=== PATIENT | male | born 1965 | race American Indian/Alaskan Native ===

== ENCOUNTER 2016-08-22 18:27 | Emergency (ER) | payer MEDICARE ==
[2016-08-22 19:59] LABS: Hematocrit 33.9 % (35.5-45.6); Hemoglobin 10.8 gm/dl (11.8-15.2); Mean Corpuscular HGB Conc 32 % (32-34); Mean Corpuscular Hemoglobin 34 pg (28-32); Mean Corpuscular Volume 109 fl (84-94); Platelet Count 287 K/mm3 (140-440); Red Blood Count 3.13 M/mm3 (3.65-5.03); Red Cell Distribution Width 16.9 % (13.2-15.2); White Blood Count 5.8 K/mm3 (4.5-11.0)
[2016-08-22 20:10] LABS: Anion Gap 14 mmol/L; Blood Urea Nitrogen 21 mg/dL (9-20); Calcium 8.6 mg/dL (8.4-10.2); Carbon Dioxide 35 mmol/L (22-30); Chloride 93.6 mmol/L (98-107); Glucose 97 mg/dL (75-100); Potassium 4.9 mmol/L (3.6-5.0); Sodium 138 mmol/L (137-145)
[2016-08-22 20:34] LABS: Basophils % (Manual) 0 % (0.0-1.8); Blastocytes % (Manual) 0 %; Eosinophils % (Manual) 0 % (0.0-4.3)
[2016-08-22 20:35] LABS: Anisocytosis 1+; Hypochromasia 1+; Macrocytosis 2+
[2016-08-22 20:36] LABS: Diff Status Complete; Elliptocytes Few; Polychromasia Few
[2016-08-22] MEDS ORDERED: NACL 0.9% 1000 ML 1,000 ML IV ONE (20:51)
[2016-08-22] MEDS ORDERED: DUONEB 0.5 MG-3 MG/3 ML SOLN IH ONE ×2 (20:51→23:48)
[2016-08-22] MEDS ORDERED: MORPHINE IV ONE (20:51)
[2016-08-22] MEDS ORDERED: ZOFRAN IV ONE (20:51)
[2016-08-22] MEDS ORDERED: VALIUM IV ONE (20:51)
[2016-08-22 20:54] LABS: Cholesterol 233 mg/dL (50-199); HDL Cholesterol 75 mg/dL (40-59); LDL Cholesterol,Direct 135 mg/dL (50-130); Triglycerides 117 mg/dL (2-149)
--- NOTE | 2016-08-22 22:39 | Emergency Department Report ---
HPI - General Chief Complaint: Dyspnea/Respdistress Time Seen by Provider: 08/22/16 20:35 - HPI HPI: The patient is a 51-year-old male with a significant history of COPD, whom presents for evaluation of dyspnea. The patient reports 1 week of progressive dyspnea, severe for the past one day, exacerbated with physical activity, and associated with mild to moderate bilateral tightness in quality chest pain for the past one day. He states that his symptoms, particularly his chest pain, are consistent with previous COPD exacerbations. He states that he has had the same chest pain for years. The patient denies fever, syncopal, hemoptysis, unilateral leg swelling, recent immobilization, history of DVT or PE, recent cancer, history of familial coagulation disorder. ED Past Medical Hx - Medications Home Medications: Home Medications Medication Instructions Recorded Confirmed Last Taken Type ALBUTEROL Inhaler [ProAir HFA 2 puff IH QID PRN #1 inhalation 08/22/16 Unknown Rx Inhaler] HYDROcodone/APAP 7.5-325 [[place]arrison 1 each PO Q8HR PRN #10 tablet 08/22/16 Unknown Rx 7.5-325 mg TAB] predniSONE [Deltasone] 20 mg PO QDAY #5 tab 08/22/16 Unknown Rx ED Review of Systems ROS: Stated complaint: SOB Other details as noted in HPI Constitutional: denies: fever ENT: denies: throat or neck pain Respiratory: reports cough, shortness of breath Cardiovascular: reports chest pain Endocrine: denies unexplained weight loss or gain Gastrointestinal: denies: abdominal pain, nausea Genitourinary: denies: dysuria Musculoskeletal: denies: leg swelling Skin: denies: rash Neurological: denies: headache Hematological/Lymphatic: denies: easy bleeding or easy bruising Psych: denies sadness or hopelessness Physical Exam - Physical Exam Vital Signs: Vital Signs 08/22/16 08/22/16 18:45 19:08 Temperature 98.6 F Pulse Rate 134 H 114 H Respiratory 24 21 Rate Blood Pressure 167/117 Blood Pressure 158/98 [Left] O2 Sat by Pulse 98 100 Oximetry Physical Exam: General: well-nourished, well-developed, no acute distress Head: Normocephalic, atraumatic Eyes: normal sclera ENT: Mucous membranes are pale and dry Neck: trachea midline, neck supple, No neck stiffness, no cervical adenopathy Respiratory: Mildly diminished breath sounds and wheezing present to apical lung willis bilaterally, no costal retractions, no respiratory distress Cardio: S1 and S2 present, no murmurs, rubs, gallops, capillary refill is delayed Abdomen: Normoactive bowel sounds, soft abdomen, no rigidity, no guarding or rebound tenderness Musc: No pitting edema Skin: No rash Neuro: no facial drooping, normal speech Psych: Normal affect ED Course Vital Signs 08/22/16 08/22/16 18:45 19:08 Temperature 98.6 F Pulse Rate 134 H 114 H Respiratory 24 21 Rate Blood Pressure 167/117 Blood Pressure 158/98 [Left] O2 Sat by Pulse 98 100 Oximetry ED Medical Decision Making - Lab Data Result diagrams: 08/22/16 19:28 08/22/16 19:28 - Medical Decision Making The patient was seen and examined by myself. The patient is placed on a security monitor and continuous pulse ox. On initial evaluation, the patient was found to be in no distress. Evaluation orders were placed. EKG negative for findings suggestive of ACS. The patient is given solumedrol for txt of COPD. The patient is given 1 L normal saline fluid bolus for treatment of dehydration and IV morphine for pain. Chest x-ray negative for focal consolidation, pleural effusions, pulmonary congestion, pneumothorax, or other acute cardio pulmonary disease process. Lab results are grossly not concerning, including downtrending troponin level from .06 to .034. The patient was reevaluated and reported that his symptoms were markedly improved. The patient is stable for discharge with outpatient follow-up. The patient is given follow-up and return instructions. The patient expressed understanding and agreed with the plan. The patient is given a prescription for prednisone. The patient is discharged in stable condition. Critical care attestation.: If time is entered above; I have spent that time in minutes in the direct care of this critically ill patient, excluding procedure time. ED Disposition Clinical Impression: Acute chest pain, Acute exacerbation of chronic obstructive pulmonary disease ( COPD), Dehydration Disposition: DISCHARGED TO HOME OR SELFCARE Is pt being admited?: No Does the pt Need Aspirin: No Condition: Stable Instructions: Chest Pain (ED), Chronic Obstructive Pulmonary Disease (ED) Prescriptions: predniSONE [Deltasone] 20 mg PO QDAY #5 tab HYDROcodone/APAP 7.5-325 [[place]arrison 7.5-325 mg TAB] 1 each PO Q8HR PRN #10 tablet PRN Reason: Pain ALBUTEROL Inhaler [ProAir HFA Inhaler] 2 puff IH QID PRN #1 inhalation PRN Reason: Shortness Of Breath Referrals: PRIMARY CARE, [Primary Care Provider] - 3-5 Days Time of Disposition: 23:08
[2016-08-23] MEDS ORDERED: MORPHINE IV ONE (02:15)
[2016-08-23 03:19] VITALS: BP 138/98
--- NOTE | 2016-08-23 08:22 | XRay Report ---
CHEST XRAY, 2 VIEWS: History: Shortness of breath. Findings: There is mild diffuse interstitial coarsening. The lungs are otherwise clear but hyperexpanded. The pleural spaces are clear. The cardiac silhouette and pulmonary vasculature are within normal limits for technique. IMPRESSION: Changes consistent with moderate to severe COPD. No evidence for an acute process.
== END 2016-08-23 03:18 | disposition home or self-care (01) ==
LOC: ED 18:27
DX: J44.1 Chronic obstructive pulmonary disease with (acute) exacerbation (principal); R07.89 Other chest pain
CPT/HCPCS: 36415; 71020; 80048; 80061; 84484; 85007; 85025; 93005; 93010; 94640; 96361; 96374; 96375; 96376; 99284; J2270; J2405; J2930; J3360; J7030

== ENCOUNTER 2016-11-16 17:20 | Emergency (ER) | payer MEDICARE ==
[2016-11-16] MEDS ORDERED: DUONEB 0.5 MG-3 MG/3 ML SOLN IH ONE (17:45)
--- NOTE | 2016-11-16 17:49 | Emergency Department Report ---
Entered by SKY CRAIN, acting as scribe for ISADORA MANZANARES NP. Chief Complaint: Dyspnea/Respdistress Stated Complaint: CHEST PAIN/SOB Time Seen by Provider: 11/16/16 17:40 - HPI History of Present Illness: 51 y/o male presents with SOB present for 1 week. Additional Sx include chronic chest pain present previous to episodes of SOB. Denies fever. - ROS Review of Systems: +chronic chest pain +SOB -fever - Exam Vital Signs: Vital Signs 11/16/16 17:36 Temperature 98.0 F Pulse Rate 95 H Respiratory 26 H Rate Blood Pressure 143/103 O2 Sat by Pulse 100 Oximetry Physical Exam: thin male, purse lipped breathing, with NC lung sounds diminished live and + wheezing MSE screening note: Focused history and physical exam performed. Due to findings the following was ordered: ekg, xr, labs ED Disposition for MSE Condition: Stable This documentation as recorded by the scribePARAS RYAN,accurately reflects the service I personally performed and the decisions made by LEIGHTON woods TRACY M , MARILU.
[2016-11-16 18:35] LABS: Hemoglobin 10.8 gm/dl (11.8-15.2); Red Blood Count 3.21 M/mm3 (3.65-5.03); White Blood Count 7.6 K/mm3 (4.5-11.0)
[2016-11-16 18:36] LABS: Basophils % (Auto) 0.3 % (0.0-1.8); Hematocrit 34.1 % (35.5-45.6); Mean Corpuscular HGB Conc 32 % (32-34); Mean Corpuscular Hemoglobin 34 pg (28-32); Mean Corpuscular Volume 106 fl (84-94); Platelet Count 195 K/mm3 (140-440); Red Cell Distribution Width 14.8 % (13.2-15.2)
[2016-11-16 18:48] LABS: Alanine Aminotransferase 16 units/L (7-56); Albumin 3.9 g/dL (3.9-5); Albumin/Globulin Ratio 1.6 %; Alkaline Phosphatase 52 units/L (35-129); Anion Gap 15 mmol/L; BUN/Creatinine Ratio 28.75; Bilirubin,Total 0.3 mg/dL (0.1-1.2); Blood Urea Nitrogen 23 mg/dL (9-20); Carbon Dioxide 33 mmol/L (22-30); Chloride 97.5 mmol/L (98-107); Glucose 131 mg/dL (75-100); Potassium 4.5 mmol/L (3.6-5.0); Sodium 141 mmol/L (137-145); Total Protein 6.3 g/dL (6.3-8.2)
--- NOTE | 2016-11-16 19:10 | Emergency Department Report ---
ED Shortness of Breath HPI - General Chief Complaint: Dyspnea/Respdistress Stated Complaint: CHEST PAIN/SOB Time Seen by Provider: 11/16/16 17:40 Source: patient Mode of arrival: Wheelchair Limitations: No Limitations - History of Present Illness Initial Comments: 51-year-old male with history of COPD on 5 L home O2 24 hours a day, HIV AIDS with last CD4 count of 20 presenting today because of worsening shortness of breath. Patient states that's been going on for the last 10 days. Started taking prednisone yesterday 40 mg and took a 30 mg dose today without significant improvement. Denies any cough or nasal congestion with this. No fevers or chills. He has chronic chest pain on the left side for many months and states he was told it was because of his COPD. - Related Data Previous Rx's Medication Instructions Recorded Last Taken Type ALBUTEROL Inhaler [ProAir HFA 2 puff IH QID PRN #1 inhalation 08/22/16 Unknown Rx Inhaler] HYDROcodone/APAP 7.5-325 [[place] 1 each PO Q8HR PRN #10 tablet 08/22/16 Unknown Rx 7.5-325 mg TAB] predniSONE [Deltasone] 20 mg PO QDAY #5 tab 08/22/16 Unknown Rx predniSONE [Deltasone] 50 mg PO QDAY #4 tab 11/16/16 Unknown Rx Allergies Allergy/AdvReac Type Severity Reaction Status Date / Time No Known Allergies Allergy Verified 08/22/16 23:55 ED Review of Systems ROS: Stated complaint: CHEST PAIN/SOB Other details as noted in HPI Comment: All other systems reviewed and negative Constitutional: denies: chills, fever Respiratory: shortness of breath. denies: cough, wheezing Cardiovascular: denies: chest pain Gastrointestinal: denies: abdominal pain, nausea, vomiting Genitourinary: denies: dysuria Skin: denies: rash Psychiatric: denies: anxiety ED Past Medical Hx - Past Medical History Previous Medical History?: Yes Hx Congestive Heart Failure: Yes Hx HIV: Yes - Surgical History Past Surgical History?: Yes Additional Surgical History: Brain - Social History Smoking Status: Former Smoker Substance Use Type: None - Medications Home Medications: Home Medications Medication Instructions Recorded Confirmed Last Taken Type ALBUTEROL Inhaler [ProAir HFA 2 puff IH QID PRN #1 inhalation 08/22/16 Unknown Rx Inhaler] HYDROcodone/APAP 7.5-325 [[place] 1 each PO Q8HR PRN #10 tablet 08/22/16 Unknown Rx 7.5-325 mg TAB] predniSONE [Deltasone] 20 mg PO QDAY #5 tab 08/22/16 Unknown Rx predniSONE [Deltasone] 50 mg PO QDAY #4 tab 11/16/16 Unknown Rx ED Physical Exam - General Limitations: No Limitations General appearance: alert, in no apparent distress - Head Head exam: Present: atraumatic - Eye Eye exam: Present: normal appearance - Respiratory Respiratory exam: Present: normal lung sounds bilaterally. Absent: respiratory distress - Cardiovascular Cardiovascular Exam: Present: regular rate, normal rhythm, other (slightly tachypnic) - GI/Abdominal GI/Abdominal exam: Present: soft. Absent: distended, tenderness - Neurological Exam Neurological exam: Present: alert, oriented X3 - Psychiatric Psychiatric exam: Present: normal affect - Skin Skin exam: Absent: rash ED Course Vital Signs 11/16/16 11/16/16 11/16/16 17:36 19:29 19:36 Temperature 98.0 F Pulse Rate 95 H 90 Pulse Rate [ 89 Anterior Bilateral Throughout] Respiratory 26 H 18 Rate Respiratory 18 Rate [Anterior Bilateral Throughout] Blood Pressure 143/103 Blood Pressure 129/85 [Left] O2 Sat by Pulse 100 100 Oximetry 11/16/16 11/16/16 11/16/16 19:46 20:05 20:12 Temperature Pulse Rate 88 Pulse Rate [ 93 H Anterior Bilateral Throughout] Respiratory 16 Rate Respiratory 18 Rate [Anterior Bilateral Throughout] Blood Pressure Blood Pressure 129/85 [Left] O2 Sat by Pulse 100 100 Oximetry 11/16/16 22:02 Temperature Pulse Rate 90 Pulse Rate [ Anterior Bilateral Throughout] Respiratory 21 Rate Respiratory Rate [Anterior Bilateral Throughout] Blood Pressure Blood Pressure 135/87 [Left] O2 Sat by Pulse 98 Oximetry ED Medical Decision Making - Lab Data Result diagrams: 11/16/16 18:14 11/16/16 18:14 - Medical Decision Making Labs, cxr, nebs, steroids ekg shows nsr without st-t changes Labs unremarkable ABG was consistent with chronic respiratory alkalosis Chest x-ray appears to be unchanged compared to prior. No clear acute infiltrate. Patient reassessed after her nebulizers and steroids, has significant improvement in symptoms it is no longer tachypneic. Stable for discharge. Critical care attestation.: If time is entered above; I have spent that time in minutes in the direct care of this critically ill patient, excluding procedure time. ED Disposition Clinical Impression: Acute exacerbation of chronic obstructive pulmonary disease (COPD) Disposition: DISCHARGED TO HOME OR SELFCARE Is pt being admited?: No Does the pt Need Aspirin: No Condition: Stable Instructions: Chronic Obstructive Pulmonary Disease (ED) Additional Instructions: Please follow up with the primary care doctor and the jet dyeing machine tender in the next 2-3 days. Return to the emergency room if your symptoms significantly worsen or develop new symptoms. Prescriptions: predniSONE [Deltasone] 50 mg PO QDAY #4 tab Referrals: PRIMARY CARE, [Primary Care Provider] - 3-5 Days
[2016-11-16 19:48] LABS: ISTAT Base Excess 9; ISTAT HCO3 34.2; ISTAT PCO2 60.2 (35-45); ISTAT PH 7.362 (7.35-7.45); ISTAT PO2 125 (80-105); ISTAT SO2 99; ISTAT TCO2 36
[2016-11-16] MEDS ORDERED: NORCO 5/325 PO ONE (21:20)
[2016-11-16 22:03] VITALS: BP 135/87
--- NOTE | 2016-11-17 08:10 | XRay Report ---
Chest 2 views. History: Shortness of breath. Findings: The lungs are severely hyperinflated and are free of acute infiltrates or congestive changes. Heart and pulmonary vessels are normal. There is no pleural fluid. Compared to a previous study on August 22, 2016, there has been no significant interval change. Impression: COPD with no acute findings.
== END 2016-11-16 22:32 | disposition home or self-care (01) ==
LOC: ED 17:20
DX: J44.1 Chronic obstructive pulmonary disease with (acute) exacerbation (principal); I50.9 Heart failure, unspecified; Z87.891 Personal history of nicotine dependence
CPT/HCPCS: 36415; 71020; 80053; 82803; 83880; 84484; 85025; 93010; 94640; 96374; 99284; J2930

== ENCOUNTER 2017-02-03 18:55 | Inpatient (IN) | payer MEDICARE ==
[2017-02-03 20:12] LABS: Mean Corpuscular HGB Conc 30 % (32-34); Mean Corpuscular Hemoglobin 31 pg (28-32); Mean Corpuscular Volume 101 fl (84-94); Platelet Count 289 K/mm3 (140-440); Red Blood Count 3.48 M/mm3 (3.65-5.03); Red Cell Distribution Width 15.5 % (13.2-15.2); White Blood Count 7.6 K/mm3 (4.5-11.0)
[2017-02-03 20:14] LABS: Alanine Aminotransferase 10 units/L (7-56); Albumin 3.1 g/dL (3.9-5); Albumin/Globulin Ratio 0.9 %; Alkaline Phosphatase 95 units/L (35-129); Blood Urea Nitrogen 18 mg/dL (9-20); Calcium 9.1 mg/dL (8.4-10.2); Chloride 92.7 mmol/L (98-107); Glucose 101 mg/dL (75-100); Potassium 4.7 mmol/L (3.6-5.0); Sodium 142 mmol/L (137-145); Total Protein 6.7 g/dL (6.3-8.2)
[2017-02-03 20:18] LABS: Anion Gap 12 mmol/L; Carbon Dioxide 42 mmol/L (22-30); Hematocrit 35.3 % (35.5-45.6); Hemoglobin 10.7 gm/dl (11.8-15.2)
[2017-02-03 20:50] LABS: Basophils % (Manual) 0 % (0.0-1.8); Blastocytes % (Manual) 0 %; Eosinophils % (Manual) 0 % (0.0-4.3)
[2017-02-03 20:51] LABS: Anisocytosis 1+; Hypochromasia 1+; Macrocytosis 1+
[2017-02-03 20:52] LABS: Diff Status Complete; Ovalocytes Few
[2017-02-03] MEDS ORDERED: NACL 0.9% 1000 ML IV ONE (21:05)
[2017-02-03] MEDS ORDERED: MOTRIN PO ONE (21:05)
[2017-02-03] MEDS ORDERED: TYLENOL PO ONE (21:05)
[2017-02-03] MEDS ORDERED: ROCEPHIN/NS 1 GM/50 ML 1 GM/50 ML BAG IV ONE (21:05)
[2017-02-03] MEDS ORDERED: ZITHROMAX PO ONE (21:05)
[2017-02-03] MEDS ORDERED: DECADRON IM ONE (21:05)
[2017-02-03] MEDS ORDERED: ATROVENT IH ONE (21:06)
[2017-02-03] MEDS ORDERED: PROVENTIL IH ONE (21:06)
[2017-02-03] MEDS ORDERED: BACTRIM IV STA (21:10)
--- NOTE | 2017-02-03 21:12 | Emergency Department Report ---
ED General Adult HPI - General Chief complaint: Weakness Stated complaint: WEAKNESS 7 DAYS Time Seen by Provider: 02/03/17 20:54 Source: patient, RN notes reviewed, old records reviewed Mode of arrival: Wheelchair Limitations: Physical Limitation - History of Present Illness Initial comments: This is a 51-year-old male. He is previously unknown to me. He has a past medical history of COPD, HIV/AIDS, currently on home oxygen therapy. Presents to the ER complaining of cough, green mucus, weakness, Chest congestion. This is been going on for the past few days. He reports decrease in exercise tolerance and generalized weakness. No fevers. Also complains of subxiphoid chest pressure and pain for 3 years. The pain does not radiate to the back, arms or neck. His symptoms have been constant for the past few days. They're getting worse. There is no leg pain. There is no leg swelling. No recent trips greater than 4 hours. No recent hospital admissions. Patient reports being seen in another emergency room at another hospital a few days ago, and told that he had a "cold." -: Gradual Consistency: constant Improves with: rest Worsens with: movement Associated Symptoms: chest pain, cough, malaise, shortness of breath, weakness - Related Data Home Medications Medication Instructions Recorded Confirmed Last Taken Carvedilol [Coreg] 12.5 mg PO Q12H 02/03/17 02/03/17 Unknown Darunavir [Prezista] 800 mg PO QDAY 02/03/17 02/03/17 Unknown Ergocalciferol [Vitamin D2] 1 cap PO QWEEK 02/03/17 02/03/17 Unknown Lisinopril [Zestril TAB] 10 mg PO QDAY 02/03/17 02/03/17 Unknown Ondansetron [Zofran TAB] 4 mg PO Q8H PRN 02/03/17 02/03/17 Unknown Oxycodone HCl [Oxycontin] 10 mg PO Q12H 02/03/17 02/03/17 Unknown clonazePAM [clonazePAM] 0.5 mg PO BID PRN 02/03/17 02/03/17 Unknown predniSONE [Deltasone] 10 mg PO QDAY 02/03/17 02/03/17 Unknown Allergies Allergy/AdvReac Type Severity Reaction Status Date / Time No Known Allergies Allergy Verified 01/22/17 23:55 ED Review of Systems ROS: Stated complaint: WEAKNESS 7 DAYS Other details as noted in HPI Constitutional: malaise, weakness Eyes: denies: eye discharge ENT: denies: epistaxis Respiratory: cough, shortness of breath, SOB with exertion, SOB at rest Cardiovascular: chest pain, dyspnea on exertion Gastrointestinal: denies: vomiting Genitourinary: as per HPI Musculoskeletal: as per HPI Skin: as per HPI Neurological: as per HPI, weakness Psychiatric: anxiety ED Past Medical Hx - Past Medical History Previous Medical History?: Yes Hx Congestive Heart Failure: Yes Hx COPD: Yes Hx HIV: Yes - Surgical History Past Surgical History?: Yes Additional Surgical History: Brain - Social History Smoking Status: Never Smoker Substance Use Type: None - Medications Home Medications: Home Medications Medication Instructions Recorded Confirmed Last Taken Type Carvedilol [Coreg] 12.5 mg PO Q12H 02/03/17 02/03/17 Unknown History Darunavir [Prezista] 800 mg PO QDAY 02/03/17 02/03/17 Unknown History Ergocalciferol [Vitamin D2] 1 cap PO QWEEK 02/03/17 02/03/17 Unknown History Lisinopril [Zestril TAB] 10 mg PO QDAY 02/03/17 02/03/17 Unknown History Ondansetron [Zofran TAB] 4 mg PO Q8H PRN 02/03/17 02/03/17 Unknown History Oxycodone HCl [Oxycontin] 10 mg PO Q12H 02/03/17 02/03/17 Unknown History clonazePAM [clonazePAM] 0.5 mg PO BID PRN 02/03/17 02/03/17 Unknown History predniSONE [Deltasone] 10 mg PO QDAY 02/03/17 02/03/17 Unknown History ED Physical Exam - General Limitations: Physical Limitation General appearance: alert, anxious, cachectic - Head Head exam: Present: atraumatic, normocephalic - Eye Eye exam: Present: normal appearance, EOMI - ENT ENT exam: Present: normal exam, normal orophraynx, mucous membranes moist - Neck Neck exam: Present: normal inspection, full ROM. Absent: tenderness, meningismus - Respiratory Respiratory exam: Present: respiratory distress, rhonchi - Cardiovascular Cardiovascular Exam: Present: normal rhythm, tachycardia, normal heart sounds. Absent: systolic murmur, diastolic murmur, rubs, gallop - GI/Abdominal GI/Abdominal exam: Present: soft, normal bowel sounds. Absent: distended, tenderness, guarding, rebound, rigid, pulsatile mass - Rectal Rectal exam: Present: deferred - Extremities Exam Extremities exam: Present: normal inspection, full ROM, normal capillary refill. Absent: tenderness, pedal edema, joint swelling, calf tenderness - Back Exam Back exam: Present: normal inspection, full ROM. Absent: tenderness, CVA tenderness (R), CVA tenderness (L), muscle spasm, paraspinal tenderness, vertebral tenderness - Neurological Exam Neurological exam: Present: alert, oriented X3, other (Extraocular movements intact. Tongue midline. No facial droop. Facial sensation intact to light touch in the V1, V2, V3 distribution bilaterally. 5 and 5 strength in 4 extremities.. Sensation is intact to light touch in 4 extremities.). Absent: motor sensory deficit - Psychiatric Psychiatric exam: Present: normal affect, normal mood - Skin Skin exam: Present: warm, dry, intact, normal color. Absent: rash ED Course Vital Signs 02/03/17 02/03/17 02/03/17 19:32 20:37 20:54 Temperature 99.0 F Pulse Rate 105 H Pulse Rate [ Bilateral Upper Lobe] Respiratory 16 20 Rate Respiratory Rate [Bilateral Upper Lobe] Blood Pressure 112/82 Blood Pressure [Right] O2 Sat by Pulse 97 99 98 Oximetry 02/03/17 02/03/17 02/03/17 21:00 21:25 21:30 Temperature Pulse Rate Pulse Rate [ Bilateral Upper Lobe] Respiratory 18 Rate Respiratory Rate [Bilateral Upper Lobe] Blood Pressure 140/89 148/93 Blood Pressure [Right] O2 Sat by Pulse 100 Oximetry 02/03/17 02/03/17 02/03/17 21:37 21:39 22:00 Temperature Pulse Rate 95 H Pulse Rate [ Bilateral Upper Lobe] Respiratory 26 H Rate Respiratory Rate [Bilateral Upper Lobe] Blood Pressure 134/90 133/95 Blood Pressure [Right] O2 Sat by Pulse 100 100 99 Oximetry 02/03/17 02/03/17 02/03/17 22:30 23:00 23:30 Temperature Pulse Rate Pulse Rate [ 96 H Bilateral Upper Lobe] Respiratory Rate Respiratory 24 Rate [Bilateral Upper Lobe] Blood Pressure 134/90 107/73 114/84 Blood Pressure [Right] O2 Sat by Pulse 99 100 99 Oximetry 02/04/17 00:00 Temperature Pulse Rate 85 Pulse Rate [ Bilateral Upper Lobe] Respiratory 153 H Rate Respiratory Rate [Bilateral Upper Lobe] Blood Pressure Blood Pressure 114/84 [Right] O2 Sat by Pulse 98 Oximetry - Reevaluation(s) Reevaluation #1: 02/03/17 21:42 Arterial blood gas demonstrates a PaCO2 of 86. The patient is not encephalopathic or obtunded. He'll be started on BiPAP therapy. ED Medical Decision Making - Lab Data Result diagrams: 02/03/17 19:41 02/03/17 19:41 Vital Signs 02/03/17 02/03/17 19:32 20:54 Temperature 99.0 F Pulse Rate 105 H Respiratory 16 20 Rate Blood Pressure 112/82 O2 Sat by Pulse 97 98 Oximetry Lab Results 02/03/17 02/03/17 Range/Units 19:41 19:41 WBC 7.6 (4.5-11.0) K/mm3 RBC 3.48 L (3.65-5.03) M/mm3 Hgb 10.7 L (11.8-15.2) gm/dl Hct 35.3 L (35.5-45.6) % MCV 101 H (84-94) fl MCH 31 (28-32) pg MCHC 30 L (32-34) % RDW 15.5 H (13.2-15.2) % Plt Count 289 (140-440) K/mm3 Lymph % (Auto) Buyer Tobacco Head [place] % (Auto) Buyer Tobacco Head Eos % (Auto) Buyer Tobacco Head Baso % (Auto) Buyer Tobacco Head Lymph # Buyer Tobacco Head [place] # Buyer Tobacco Head Eos # Buyer Tobacco Head Baso # Buyer Tobacco Head Add Manual Diff Complete Total Counted 100 Seg Neutrophils % Buyer Tobacco Head Seg Neuts % (Manual) 5.0 L (40.0-70.0) % Band Neutrophils % 62.0 % Lymphocytes % (Manual) 21.0 (13.4-35.0) % Reactive Lymphs % (Man) 0 % Monocytes % (Manual) 9.0 H (0.0-7.3) % Eosinophils % (Manual) 0 (0.0-4.3) % Basophils % (Manual) 0 (0.0-1.8) % Metamyelocytes % 3.0 % Myelocytes % 0 % Promyelocytes % 0 % Blast Cells % 0 % Nucleated RBC % Not Reportable Seg Neutrophils # Buyer Tobacco Head Seg Neutrophils # Man 0.4 L (1.8-7.7) K/mm3 Band Neutrophils # 4.7 K/mm3 Lymphocytes # (Manual) 1.6 (1.2-5.4) K/mm3 Abs React Lymphs (Man) 0.0 K/mm3 Monocytes # (Manual) 0.7 (0.0-0.8) K/mm3 Eosinophils # (Manual) 0.0 (0.0-0.4) K/mm3 Basophils # (Manual) 0.0 (0.0-0.1) K/mm3 Metamyelocytes # 0.2 K/mm3 Myelocytes # 0.0 K/mm3 Promyelocytes # 0.0 K/mm3 Blast Cells # 0.0 K/mm3 WBC Morphology Not Reportable Hypersegmented Neuts Not Reportable Hyposegmented Neuts Not Reportable Hypogranular Neuts Not Reportable Smudge Cells Not Reportable Toxic Granulation Not Reportable Toxic Vacuolation Not Reportable Dohle Bodies Not Reportable Pelger-Huet Anomaly Not Reportable David Rods Not Reportable Platelet Estimate Appears normal Clumped Platelets Not Reportable Plt Clumps, EDTA Not Reportable Large Platelets Not Reportable Giant Platelets Not Reportable Platelet Satelliting Not Reportable Plt Morphology Comment Not Reportable RBC Morphology Not Reportable Dimorphic RBCs Not Reportable Polychromasia Not Reportable Hypochromasia 1+ Poikilocytosis Not Reportable Anisocytosis 1+ Microcytosis Not Reportable Macrocytosis 1+ Spherocytes Not Reportable Pappenheimer Bodies Not Reportable Sickle Cells Not Reportable Target Cells Not Reportable Tear Drop Cells Not Reportable Ovalocytes Few Helmet Cells Not Reportable [place] Bodies Not Reportable [place] Rings Not Reportable [place] Cells Not Reportable Bite Cells Not Reportable Crenated Cell Not Reportable Elliptocytes Not Reportable Acanthocytes (Spur) Not Reportable Rouleaux Not Reportable Hemoglobin C Crystals Not Reportable Schistocytes Not Reportable Malaria parasites Not Reportable Jamal Bodies Not Reportable Hem Pathologist Commnt No Sodium 142 (137-145) mmol/L Carbon Dioxide 42 H* (22-30) mmol/L Anion Gap 12 mmol/L BUN 18 (9-20) mg/dL Creatinine 0.6 L (0.8-1.5) mg/dL Estimated GFR > 60 ml/min BUN/Creatinine Ratio 30.00 % Glucose 101 H (75-100) mg/dL Calcium 9.1 (8.4-10.2) mg/dL Total Bilirubin 0.20 (0.1-1.2) mg/dL AST 13 (5-40) units/L ALT 10 (7-56) units/L Alkaline Phosphatase 95 (35-129) units/L Total Protein 6.7 (6.3-8.2) g/dL Albumin 3.1 L (3.9-5) g/dL Albumin/Globulin Ratio 0.9 % - EKG Data -: EKG Interpreted by Me EKG shows normal: sinus rhythm - EKG Data 02/03/17 21:23 Sinus tachycardia, 101 bpm, poor R-wave progression, high left ventricular voltage, motion artifact, abnormal EKG, not morphologically consistent with STEMI, appears unchanged when compared to prior from October 2016. Motion artifact is appreciated - Radiology Data Radiology results: image reviewed interpreted by me: X-ray of the chest suggest multilobar pneumonia - Medical Decision Making Differential diagnosis: COPD exacerbation, respiratory failure, pneumonia, PCP, HIV/AIDS Assessment and plan: 51-year-old male with probable multi lobar pneumonia possibly PCP. Already on home oxygen. Elevated CO2 was noted on laboratory studies. Albuterol, Atrovent, steroids, ABG ordered and pending. IV fluids ordered at 30 mL/kg. Timed lactic acid is ordered. Ceftriaxone, azithromycin, IV bactrim ordered. Case presented to the Hospital physician, Dr. Sparks who accepts the patient to her service. Critical Care Time: Yes Critical care time in (mins) excluding proc time.: 35 Critical care attestation.: If time is entered above; I have spent that time in minutes in the direct care of this critically ill patient, excluding procedure time. Critical Care Time: Critical care time includes multiple bedside evaluations, interpretation of laboratory studies, radiology studies, time spent managing a patient with hypercarbic respiratory failure and multilobar pneumonia, requiring noninvasive ventilation. This does not include procedure time. ED Disposition Clinical Impression: AIDS Pneumonia Qualifiers: Pneumonia type: due to unspecified organism Laterality: bilateral Lung location : unspecified part of lung Qualified Code(s): J18.9 - Pneumonia, unspecified organism Disposition: OP ADMIT IP TO THIS HOSP Is pt being admited?: Yes Does the pt Need Aspirin: Yes Condition: Fair
[2017-02-03] MEDS ORDERED: NACL 0.9% 500 ML 500 ML ONE (21:18)
[2017-02-03] MEDS ORDERED: BABY ASPIRIN PO ONE (21:26)
[2017-02-03 21:46] LABS: ISTAT Base Excess 21; ISTAT PCO2 86.4 (35-45); ISTAT PH 7.343 (7.35-7.45); ISTAT PO2 125 (80-105); ISTAT SO2 98; ISTAT TCO2 50
[2017-02-03] MEDS ORDERED: BACTRIM IV ONE (22:00)
[2017-02-03] MEDS ORDERED: VERSED IV NR (22:00)
[2017-02-03] MEDS ORDERED: D5W IV ONE (22:00)
[2017-02-03] MEDS ORDERED: MILK OF MAGNESIA PO PRN (22:47)
[2017-02-03] MEDS ORDERED: ZOFRAN IV PRN (22:47)
[2017-02-03] MEDS ORDERED: DULCOLAX PR PRN (22:47)
[2017-02-03] MEDS ORDERED: TYLENOL PO PRN (22:47)
[2017-02-03] MEDS ORDERED: PROVENTIL IH PRN (22:47)
--- NOTE | 2017-02-03 22:49 | History and Physical Report ---
History of Present Illness Date of examination: 02/03/17 History of present illness: 51-year-old man with a history of HIV, unknown CD4 count, COPD, CHF, hep C comes emergency room with complaint of shortness of breath 5 days. He also complaining of cough productive of green yellow phlegm, decreased appetite and lethargy Patient denies chest pain, palpitation, abdominal pain, hematochezia, dysuria, frequency, focal weakness, dysarthria, fever chills, polydipsia polyuria, hot or cold intolerance, easy bruisability, or rash or bleeding from mucosal membrane, rhinorrhea, epistaxis, earache, tinnitus, blurry vision, eye discharge , anxiety, depression. Other review of systems negative PAST SURGICAL HISTORY: None SOCIAL HISTORY: Denies alcohol, tobacco, drugs FAMILY HISTORY: Hypertension Medications and Allergies Allergies Allergy/AdvReac Type Severity Reaction Status Date / Time No Known Allergies Allergy Verified 08/22/16 23:55 Home Medications Medication Instructions Recorded Confirmed Last Taken Type Carvedilol [Coreg] 12.5 mg PO Q12H 02/03/17 02/03/17 Unknown History Darunavir [Prezista] 800 mg PO QDAY 02/03/17 02/03/17 Unknown History Ergocalciferol [Vitamin D2] 1 cap PO QWEEK 02/03/17 02/03/17 Unknown History Lisinopril [Zestril TAB] 10 mg PO QDAY 02/03/17 02/03/17 Unknown History Ondansetron [Zofran TAB] 4 mg PO Q8H PRN 02/03/17 02/03/17 Unknown History Oxycodone HCl [Oxycontin] 10 mg PO Q12H 02/03/17 02/03/17 Unknown History clonazePAM [clonazePAM] 0.5 mg PO BID PRN 02/03/17 02/03/17 Unknown History predniSONE [Deltasone] 10 mg PO QDAY 02/03/17 02/03/17 Unknown History Active Meds: Active Medications Trimethoprim/Sulfamethoxazole (335 mg/ Dextrose) 520.9375 mls @ 167 mls/hr IV ONCE.ED ONE Stop: 02/04/17 01:07 Last Admin: 02/03/17 21:53 Dose: 167 mls/hr Midazolam HCl (Versed) 1 mg IV ONCE NR Stop: 02/03/17 23:59 Exam - Physical Exam Narrative exam: Gen. appearance: Patient lying in bed, no apparent distress HEENT: Normocephalic, atraumatic, pupils equally round and reactive to light, extraocular movement intact, and no sclericterus,. No JVD or thyromegaly or nodule,neck supple, no carotid bruit ,mucous membranes moist, no exudate or erythema Heart: S1, S2, regular rate and rhythm Lungs: Crackles, breathing comfortable Abdomen: Positive bowel sounds, nontender, nondistended, no organomegaly Extremity: No edema, cyanosis, clubbing Skin: No rash, nodules, warm, dry Neuro: Oriented 3, cranial nerves II-12 intact, speech is fluent, motor and sensory intact - Constitutional Vitals: Temp Pulse Resp BP Pulse Ox 99.0 F 105 H 18 112/82 100 02/03/17 19:32 02/03/17 19:32 02/03/17 21:25 02/03/17 19:32 02/03/17 21:39 Results - Labs CBC & Chem 7: 02/03/17 19:41 02/03/17 19:41 Labs: Abnormal lab results 02/03/17 02/03/17 02/03/17 Range/Units 19:41 19:41 21:33 RBC 3.48 L (3.65-5.03) M/mm3 Hgb 10.7 L (11.8-15.2) gm/dl Hct 35.3 L (35.5-45.6) % MCV 101 H (84-94) fl MCHC 30 L (32-34) % RDW 15.5 H (13.2-15.2) % Seg Neuts % (Manual) 5.0 L (40.0-70.0) % Monocytes % (Manual) 9.0 H (0.0-7.3) % Seg Neutrophils # Man 0.4 L (1.8-7.7) K/mm3 POC ABG pH 7.343 L (7.35-7.45) POC ABG pCO2 86.4 H (35-45) POC ABG pO2 125 H (80-105) Carbon Dioxide 42 H* (22-30) mmol/L Creatinine 0.6 L (0.8-1.5) mg/dL Glucose 101 H (75-100) mg/dL Albumin 3.1 L (3.9-5) g/dL - Imaging and Cardiology EKG: image reviewed Chest x-ray: image reviewed Assessment and Plan Acute respiratory failure Community-acquired pneumonia HIV COPD CHF, stable Hep C Admit to medicine Continue BiPAP, Start IV antibiotic, follow blood culture, sputum culture Continue outpatient medications, start prophylaxis
[2017-02-04 00:46] LABS: Bilirubin,Urine NEG (Negative); Blood,Urine NEG (Negative); Ketones,Urine NEG (Negative); Leukocyte Esterase,Urine NEG (Negative); Mucus,Urine FEW /HPF; Nitrite,Urine NEG (Negative)
[2017-02-04] MEDS: COREG PO SCH ×3 (01:43→21:36)
--- NOTE | 2017-02-04 07:37 | XRay Report ---
Single view chest: Compared to 11/16/16. History: Cough, chest pain. Findings: Normal size heart. Trachea is midline. Ill-defined opacities left lower lobe and right lower lobe. Normal CP angles. Evidence of COPD. Impression: Bilateral lower lobe opacities probably pneumonitis.
[2017-02-04 08:12] LABS: Hematocrit 34.7 % (35.5-45.6); Mean Corpuscular HGB Conc 32 % (32-34); Mean Corpuscular Hemoglobin 31 pg (28-32); Mean Corpuscular Volume 98 fl (84-94); Platelet Count 281 K/mm3 (140-440); Red Blood Count 3.54 M/mm3 (3.65-5.03); Red Cell Distribution Width 15.3 % (13.2-15.2); White Blood Count 4.2 K/mm3 (4.5-11.0)
[2017-02-04 08:39] LABS: Blood Urea Nitrogen 14 mg/dL (9-20); Calcium 8.9 mg/dL (8.4-10.2); Chloride 93.6 mmol/L (98-107); Glucose 148 mg/dL (75-100); Potassium 5.2 mmol/L (3.6-5.0); Sodium 141 mmol/L (137-145)
[2017-02-04 08:45] LABS: Anion Gap 15 mmol/L; Carbon Dioxide 38 mmol/L (22-30)
[2017-02-04 09:59] LABS: Anisocytosis 1+; Blastocytes % (Manual) 0 %; Hypochromasia 1+; Macrocytosis 1+
[2017-02-04] MEDS ORDERED: LOVENOX SUB-Q SCH (10:00)
[2017-02-04 10:01] LABS: Diff Status Complete; Ovalocytes Few; Platelet Estimate Consistent w Auto
--- NOTE | 2017-02-04 10:37 | Progress Note ---
Assessment and Plan Assessment and plan: --Acute respiratory failure Secondary to pneumonia and underlying COPD oxygen titrate to O2 sats more than 90%, supportive care. BiPAP as needed, --Community-acquired pneumonia Continue current antibiotics, follow cultures, supportive care of HIV --History of HIV; continue antiretrovirals, consider ID evaluation if needed --COPD , Oxygen, nebulizers, inhalation steroids --History of hepatitis C; stable --DVT prophylaxis with Lovenox Closely monitor the patient and adjust management as needed Patient's condition treatment plan discussed in detail with the patient, his nurse and case management History Interval history: Sincerely and evaluated medical records reviewed No new events reported by the nursing staff, patient complains of generalized body pains Alert awake oriented 3 not in acute distress Vital signs reviewed stable Hospitalist Physical - Constitutional Vitals: Temp Pulse Resp BP Pulse Ox 97.8 F 76 16 115/78 98 02/04/17 08:00 02/04/17 08:00 02/04/17 08:00 02/04/17 08:00 02/04/17 08:00 General appearance: Present: no acute distress, well-nourished - EENT Eyes: Present: PERRL, EOM intact - Neck Neck: Present: supple, normal ROM - Respiratory Respiratory effort: normal Respiratory: bilateral: diminished, rhonchi, negative: rales, wheezing - Cardiovascular Rhythm: regular Heart Sounds: Present: S1 & S2 - Extremities Extremities: no ischemia, pulses intact, pulses symmetrical Peripheral Pulses: within normal limits - Abdominal General gastrointestinal: soft, non-tender, non-distended, normal bowel sounds - Integumentary Integumentary: Present: clear, warm - Psychiatric Psychiatric: appropriate mood/affect, cooperative - Neurologic Neurologic: CNII-XII intact, moves all extremities Results - Labs CBC & Chem 7: 02/04/17 07:34 02/04/17 07:34 Labs: Laboratory Last Values WBC 4.2 K/mm3 (4.5-11.0) L 02/04/17 07:34 RBC 3.54 M/mm3 (3.65-5.03) L 02/04/17 07:34 Hgb 11.0 gm/dl (11.8-15.2) L 02/04/17 07:34 Hct 34.7 % (35.5-45.6) L 02/04/17 07:34 MCV 98 fl (84-94) H D 02/04/17 07:34 MCH 31 pg (28-32) 02/04/17 07:34 MCHC 32 % (32-34) 02/04/17 07:34 RDW 15.3 % (13.2-15.2) H 02/04/17 07:34 Plt Count 281 K/mm3 (140-440) 02/04/17 07:34 Lymph % (Auto) Interpretive Program Coordinator 02/03/17 19:41 [place] % (Auto) Interpretive Program Coordinator 02/03/17 19:41 Eos % (Auto) Interpretive Program Coordinator 02/03/17 19:41 Baso % (Auto) Interpretive Program Coordinator 02/03/17 19:41 Lymph # Interpretive Program Coordinator 02/03/17 19:41 [place] # Interpretive Program Coordinator 02/03/17 19:41 Eos # Interpretive Program Coordinator 02/03/17 19:41 Baso # Interpretive Program Coordinator 02/03/17 19:41 Add Manual Diff Complete 02/04/17 07:34 Total Counted 100 02/04/17 07:34 Seg Neutrophils % Interpretive Program Coordinator 02/03/17 19:41 Seg Neuts % (Manual) 31.0 % (40.0-70.0) L 02/04/17 07:34 Band Neutrophils % 44.0 % 02/04/17 07:34 Lymphocytes % (Manual) 17.0 % (13.4-35.0) 02/04/17 07:34 Reactive Lymphs % (Man) 0 % 02/04/17 07:34 Monocytes % (Manual) 5.0 % (0.0-7.3) 02/04/17 07:34 Eosinophils % (Manual) 0 % (0.0-4.3) 02/03/17 19:41 Basophils % (Manual) 0 % (0.0-1.8) 02/03/17 19:41 Metamyelocytes % 3.0 % 02/04/17 07:34 Myelocytes % 0 % 02/04/17 07:34 Promyelocytes % 0 % 02/04/17 07:34 Blast Cells % 0 % 02/04/17 07:34 Nucleated RBC % Not Reportable 02/04/17 07:34 Seg Neutrophils # Interpretive Program Coordinator 02/03/17 19:41 Seg Neutrophils # Man 1.3 K/mm3 (1.8-7.7) L 02/04/17 07:34 Band Neutrophils # 1.8 K/mm3 02/04/17 07:34 Lymphocytes # (Manual) 0.7 K/mm3 (1.2-5.4) L 02/04/17 07:34 Abs React Lymphs (Man) 0.0 K/mm3 02/04/17 07:34 Monocytes # (Manual) 0.2 K/mm3 (0.0-0.8) 02/04/17 07:34 Eosinophils # (Manual) 0.0 K/mm3 (0.0-0.4) 02/04/17 07:34 Basophils # (Manual) 0.0 K/mm3 (0.0-0.1) 02/04/17 07:34 Metamyelocytes # 0.1 K/mm3 02/04/17 07:34 Myelocytes # 0.0 K/mm3 02/04/17 07:34 Promyelocytes # 0.0 K/mm3 02/04/17 07:34 Blast Cells # 0.0 K/mm3 02/04/17 07:34 WBC Morphology Not Reportable 02/04/17 07:34 Hypersegmented Neuts Not Reportable 02/04/17 07:34 Hyposegmented Neuts Not Reportable 02/04/17 07:34 Hypogranular Neuts Not Reportable 02/04/17 07:34 Smudge Cells Not Reportable 02/04/17 07:34 Toxic Granulation Not Reportable 02/04/17 07:34 Toxic Vacuolation Not Reportable 02/04/17 07:34 Dohle Bodies Not Reportable 02/04/17 07:34 Pelger-Huet Anomaly Not Reportable 02/04/17 07:34 David Rods Not Reportable 02/04/17 07:34 Platelet Estimate Consistent w auto 02/04/17 07:34 Clumped Platelets Not Reportable 02/04/17 07:34 Plt Clumps, EDTA Not Reportable 02/04/17 07:34 Large Platelets Not Reportable 02/04/17 07:34 Giant Platelets Not Reportable 02/04/17 07:34 Platelet Satelliting Not Reportable 02/04/17 07:34 Plt Morphology Comment Not Reportable 02/04/17 07:34 RBC Morphology Not Reportable 02/04/17 07:34 Dimorphic RBCs Not Reportable 02/04/17 07:34 Polychromasia Not Reportable 02/04/17 07:34 Hypochromasia 1+ 02/04/17 07:34 Poikilocytosis Not Reportable 02/04/17 07:34 Anisocytosis 1+ 02/04/17 07:34 Microcytosis Not Reportable 02/04/17 07:34 Macrocytosis 1+ 02/04/17 07:34 Spherocytes Not Reportable 02/04/17 07:34 Pappenheimer Bodies Not Reportable 02/04/17 07:34 Sickle Cells Not Reportable 02/04/17 07:34 Target Cells Not Reportable 02/04/17 07:34 Tear Drop Cells Not Reportable 02/04/17 07:34 Ovalocytes Few 02/04/17 07:34 Helmet Cells Not Reportable 02/04/17 07:34 [place] Bodies Not Reportable 02/04/17 07:34 [place] Rings Not Reportable 02/04/17 07:34 Mery Cells Not Reportable 02/04/17 07:34 Bite Cells Not Reportable 02/04/17 07:34 Crenated Cell Not Reportable 02/04/17 07:34 Elliptocytes Not Reportable 02/04/17 07:34 Acanthocytes (Spur) Not Reportable 02/04/17 07:34 Rouleaux Not Reportable 02/04/17 07:34 Hemoglobin C Crystals Not Reportable 02/04/17 07:34 Schistocytes Not Reportable 02/04/17 07:34 Malaria parasites Not Reportable 02/04/17 07:34 Jamal Bodies Not Reportable 02/04/17 07:34 Hem Pathologist Commnt No 02/04/17 07:34 POC ABG pH 7.343 (7.35-7.45) L 02/03/17 21:33 POC ABG pCO2 86.4 (35-45) H 02/03/17 21:33 POC ABG pO2 125 (80-105) H 02/03/17 21:33 POC ABG HCO3 47.0 02/03/17 21:33 POC ABG Total CO2 50 02/03/17 21:33 POC ABG O2 Sat 98 02/03/17 21:33 POC ABG Base Excess 21 02/03/17 21:33 FiO2 40 % 02/03/17 21:33 Sodium 141 mmol/L (137-145) 02/04/17 07:34 Potassium 5.2 mmol/L (3.6-5.0) H 02/04/17 07:34 Chloride 93.6 mmol/L (98-107) L 02/04/17 07:34 Carbon Dioxide 38 mmol/L (22-30) H 02/04/17 07:34 Anion Gap 15 mmol/L 02/04/17 07:34 BUN 14 mg/dL (9-20) 02/04/17 07:34 Creatinine 0.5 mg/dL (0.8-1.5) L 02/04/17 07:34 Estimated GFR > 60 ml/min 02/04/17 07:34 BUN/Creatinine Ratio 28.00 % 02/04/17 07:34 Glucose 148 mg/dL (75-100) H 02/04/17 07:34 Lactic Acid 0.70 mmol/L (0.7-2.0) 02/04/17 01:15 Calcium 8.9 mg/dL (8.4-10.2) 02/04/17 07:34 Total Bilirubin 0.20 mg/dL (0.1-1.2) 02/03/17 19:41 AST 13 units/L (5-40) 02/03/17 19:41 ALT 10 units/L (7-56) 02/03/17 19:41 Alkaline Phosphatase 95 units/L (35-129) 02/03/17 19:41 Troponin T 0.024 ng/mL (0.00-0.029) 02/03/17 22:02 Total Protein 6.7 g/dL (6.3-8.2) 02/03/17 19:41 Albumin 3.1 g/dL (3.9-5) L 02/03/17 19:41 Albumin/Globulin Ratio 0.9 % 02/03/17 19:41 Urine Color Yellow (Yellow) 02/04/17 00:15 Urine Turbidity Clear (Clear) 02/04/17 00:15 Urine pH 5.0 (5.0-7.0) 02/04/17 00:15 Ur Specific [place] 1.023 (1.003-1.030) 02/04/17 00:15 Urine Protein 100 mg/dl mg/dL (Negative) 02/04/17 00:15 Urine Glucose (UA) Neg mg/dL (Negative) 02/04/17 00:15 Urine Ketones Neg mg/dL (Negative) 02/04/17 00:15 Urine Blood Neg (Negative) 02/04/17 00:15 Urine Nitrite Neg (Negative) 02/04/17 00:15 Urine Bilirubin Neg (Negative) 02/04/17 00:15 Urine Urobilinogen 2.0 mg/dL (<2.0) 02/04/17 00:15 Ur Leukocyte Esterase Neg (Negative) 02/04/17 00:15 Urine WBC (Auto) 1.0 /HPF (0.0-6.0) 02/04/17 00:15 Urine RBC (Auto) 1.0 /HPF (0.0-6.0) 02/04/17 00:15 U Epithel Cells (Auto) 1.0 /HPF (0-13.0) 02/04/17 00:15 Urine Mucus Few /HPF 02/04/17 00:15
--- NOTE | 2017-02-04 10:38 | Progress Note ---
Hospitalist Physical - Constitutional Vitals: Temp Pulse Resp BP Pulse Ox 97.8 F 76 16 115/78 98 02/04/17 08:00 02/04/17 08:00 02/04/17 08:00 02/04/17 08:00 02/04/17 08:00 Results - Labs CBC & Chem 7: 02/04/17 07:34 02/04/17 07:34 Labs: Laboratory Last Values WBC 4.2 K/mm3 (4.5-11.0) L 02/04/17 07:34 RBC 3.54 M/mm3 (3.65-5.03) L 02/04/17 07:34 Hgb 11.0 gm/dl (11.8-15.2) L 02/04/17 07:34 Hct 34.7 % (35.5-45.6) L 02/04/17 07:34 MCV 98 fl (84-94) H D 02/04/17 07:34 MCH 31 pg (28-32) 02/04/17 07:34 MCHC 32 % (32-34) 02/04/17 07:34 RDW 15.3 % (13.2-15.2) H 02/04/17 07:34 Plt Count 281 K/mm3 (140-440) 02/04/17 07:34 Lymph % (Auto) Project Analyst 02/03/17 19:41 [place] % (Auto) Project Analyst 02/03/17 19:41 Eos % (Auto) Project Analyst 02/03/17 19:41 Baso % (Auto) Project Analyst 02/03/17 19:41 Lymph # Project Analyst 02/03/17 19:41 [place] # Project Analyst 02/03/17 19:41 Eos # Project Analyst 02/03/17 19:41 Baso # Project Analyst 02/03/17 19:41 Add Manual Diff Complete 02/04/17 07:34 Total Counted 100 02/04/17 07:34 Seg Neutrophils % Project Analyst 02/03/17 19:41 Seg Neuts % (Manual) 31.0 % (40.0-70.0) L 02/04/17 07:34 Band Neutrophils % 44.0 % 02/04/17 07:34 Lymphocytes % (Manual) 17.0 % (13.4-35.0) 02/04/17 07:34 Reactive Lymphs % (Man) 0 % 02/04/17 07:34 Monocytes % (Manual) 5.0 % (0.0-7.3) 02/04/17 07:34 Eosinophils % (Manual) 0 % (0.0-4.3) 02/03/17 19:41 Basophils % (Manual) 0 % (0.0-1.8) 02/03/17 19:41 Metamyelocytes % 3.0 % 02/04/17 07:34 Myelocytes % 0 % 02/04/17 07:34 Promyelocytes % 0 % 02/04/17 07:34 Blast Cells % 0 % 02/04/17 07:34 Nucleated RBC % Not Reportable 02/04/17 07:34 Seg Neutrophils # Project Analyst 02/03/17 19:41 Seg Neutrophils # Man 1.3 K/mm3 (1.8-7.7) L 02/04/17 07:34 Band Neutrophils # 1.8 K/mm3 02/04/17 07:34 Lymphocytes # (Manual) 0.7 K/mm3 (1.2-5.4) L 02/04/17 07:34 Abs React Lymphs (Man) 0.0 K/mm3 02/04/17 07:34 Monocytes # (Manual) 0.2 K/mm3 (0.0-0.8) 02/04/17 07:34 Eosinophils # (Manual) 0.0 K/mm3 (0.0-0.4) 02/04/17 07:34 Basophils # (Manual) 0.0 K/mm3 (0.0-0.1) 02/04/17 07:34 Metamyelocytes # 0.1 K/mm3 02/04/17 07:34 Myelocytes # 0.0 K/mm3 02/04/17 07:34 Promyelocytes # 0.0 K/mm3 02/04/17 07:34 Blast Cells # 0.0 K/mm3 02/04/17 07:34 WBC Morphology Not Reportable 02/04/17 07:34 Hypersegmented Neuts Not Reportable 02/04/17 07:34 Hyposegmented Neuts Not Reportable 02/04/17 07:34 Hypogranular Neuts Not Reportable 02/04/17 07:34 Smudge Cells Not Reportable 02/04/17 07:34 Toxic Granulation Not Reportable 02/04/17 07:34 Toxic Vacuolation Not Reportable 02/04/17 07:34 Dohle Bodies Not Reportable 02/04/17 07:34 Pelger-Huet Anomaly Not Reportable 02/04/17 07:34 David Rods Not Reportable 02/04/17 07:34 Platelet Estimate Consistent w auto 02/04/17 07:34 Clumped Platelets Not Reportable 02/04/17 07:34 Plt Clumps, EDTA Not Reportable 02/04/17 07:34 Large Platelets Not Reportable 02/04/17 07:34 Giant Platelets Not Reportable 02/04/17 07:34 Platelet Satelliting Not Reportable 02/04/17 07:34 Plt Morphology Comment Not Reportable 02/04/17 07:34 RBC Morphology Not Reportable 02/04/17 07:34 Dimorphic RBCs Not Reportable 02/04/17 07:34 Polychromasia Not Reportable 02/04/17 07:34 Hypochromasia 1+ 02/04/17 07:34 Poikilocytosis Not Reportable 02/04/17 07:34 Anisocytosis 1+ 02/04/17 07:34 Microcytosis Not Reportable 02/04/17 07:34 Macrocytosis 1+ 02/04/17 07:34 Spherocytes Not Reportable 02/04/17 07:34 Pappenheimer Bodies Not Reportable 02/04/17 07:34 Sickle Cells Not Reportable 02/04/17 07:34 Target Cells Not Reportable 02/04/17 07:34 Tear Drop Cells Not Reportable 02/04/17 07:34 Ovalocytes Few 02/04/17 07:34 Helmet Cells Not Reportable 02/04/17 07:34 [place] Bodies Not Reportable 02/04/17 07:34 [place] Rings Not Reportable 02/04/17 07:34 [place] Cells Not Reportable 02/04/17 07:34 Bite Cells Not Reportable 02/04/17 07:34 Crenated Cell Not Reportable 02/04/17 07:34 Elliptocytes Not Reportable 02/04/17 07:34 Acanthocytes (Spur) Not Reportable 02/04/17 07:34 Rouleaux Not Reportable 02/04/17 07:34 Hemoglobin C Crystals Not Reportable 02/04/17 07:34 Schistocytes Not Reportable 02/04/17 07:34 Malaria parasites Not Reportable 02/04/17 07:34 Jamal Bodies Not Reportable 02/04/17 07:34 Hem Pathologist Commnt No 02/04/17 07:34 POC ABG pH 7.343 (7.35-7.45) L 02/03/17 21:33 POC ABG pCO2 86.4 (35-45) H 02/03/17 21:33 POC ABG pO2 125 (80-105) H 02/03/17 21:33 POC ABG HCO3 47.0 02/03/17 21:33 POC ABG Total CO2 50 02/03/17 21:33 POC ABG O2 Sat 98 02/03/17 21:33 POC ABG Base Excess 21 02/03/17 21:33 FiO2 40 % 02/03/17 21:33 Sodium 141 mmol/L (137-145) 02/04/17 07:34 Potassium 5.2 mmol/L (3.6-5.0) H 02/04/17 07:34 Chloride 93.6 mmol/L (98-107) L 02/04/17 07:34 Carbon Dioxide 38 mmol/L (22-30) H 02/04/17 07:34 Anion Gap 15 mmol/L 02/04/17 07:34 BUN 14 mg/dL (9-20) 02/04/17 07:34 Creatinine 0.5 mg/dL (0.8-1.5) L 02/04/17 07:34 Estimated GFR > 60 ml/min 02/04/17 07:34 BUN/Creatinine Ratio 28.00 % 02/04/17 07:34 Glucose 148 mg/dL (75-100) H 02/04/17 07:34 Lactic Acid 0.70 mmol/L (0.7-2.0) 02/04/17 01:15 Calcium 8.9 mg/dL (8.4-10.2) 02/04/17 07:34 Total Bilirubin 0.20 mg/dL (0.1-1.2) 02/03/17 19:41 AST 13 units/L (5-40) 02/03/17 19:41 ALT 10 units/L (7-56) 02/03/17 19:41 Alkaline Phosphatase 95 units/L (35-129) 02/03/17 19:41 Troponin T 0.024 ng/mL (0.00-0.029) 02/03/17 22:02 Total Protein 6.7 g/dL (6.3-8.2) 02/03/17 19:41 Albumin 3.1 g/dL (3.9-5) L 02/03/17 19:41 Albumin/Globulin Ratio 0.9 % 02/03/17 19:41 Urine Color Yellow (Yellow) 02/04/17 00:15 Urine Turbidity Clear (Clear) 02/04/17 00:15 Urine pH 5.0 (5.0-7.0) 02/04/17 00:15 Ur Specific [place] 1.023 (1.003-1.030) 02/04/17 00:15 Urine Protein 100 mg/dl mg/dL (Negative) 02/04/17 00:15 Urine Glucose (UA) Neg mg/dL (Negative) 02/04/17 00:15 Urine Ketones Neg mg/dL (Negative) 02/04/17 00:15 Urine Blood Neg (Negative) 02/04/17 00:15 Urine Nitrite Neg (Negative) 02/04/17 00:15 Urine Bilirubin Neg (Negative) 02/04/17 00:15 Urine Urobilinogen 2.0 mg/dL (<2.0) 02/04/17 00:15 Ur Leukocyte Esterase Neg (Negative) 02/04/17 00:15 Urine WBC (Auto) 1.0 /HPF (0.0-6.0) 02/04/17 00:15 Urine RBC (Auto) 1.0 /HPF (0.0-6.0) 02/04/17 00:15 U Epithel Cells (Auto) 1.0 /HPF (0-13.0) 02/04/17 00:15 Urine Mucus Few /HPF 02/04/17 00:15
[2017-02-04] MEDS ORDERED: DUONEB *Not for PRN Use IH ONE (11:34)
[2017-02-04] MEDS: ZITHROMAX 500 MG in NACL 0.9% 250ML 250 ML IV SCH (11:37)
[2017-02-04] MEDS: PREZISTA PO SCH (11:47)
[2017-02-04] MEDS: ROCEPHIN/NS 1 GM/50 ML 1 GM/50 ML BAG IV SCH (11:47)
[2017-02-04] MEDS: LOVENOX SUB-Q SCH (11:47)
[2017-02-04] MEDS: ZESTRIL PO SCH (11:48)
--- NOTE | 2017-02-04 12:02 | Admit Criteria Form ---
Admission Criteria Documentation: RESPIRATORY FAILURE GRG Clinical Indications for Admission to Inpatient Care (Place 'X' for any and all applicable criteria): Hospital admission is needed for appropriate care of the patient because of acute respiratory failure or insufficiency as indicated by ANY ONE of the following(1)(2)(3)(4)(5)(6)(7)(8): [X ]I. Mechanical ventilation needed (acute invasive or noninvasive) [ ]II. Severe ventilation deficit as indicated by ANY ONE of the following (9) [ ]a) Respiratory acidosis (pH less than 7.32 and partial pressure of carbon dioxide greater than 40 mm Hg (5.3 kPa)) [ ]b) Partial pressure of carbon dioxide greater than 44 mm Hg (5.9 kPa ) (new) [ ]c) Airflow measurements less than 25% of predicted (eg, peak expiratory flow rate less than 100 L/minute) [ ]d) Forced vital capacity less than 15 mL/kg of ideal body weight, or 50% decrease in vital capacity from baseline [ ]III. Noncardiac pulmonary edema not resolving with rapid emergency treatment (8) [ ]IV. Severe respiratory distress as indicated by ANY ONE of the following: [ ]a) Severe tachypnea (respiratory rate greater than 30, greater than 45 for 6-month-old, greater than 60 for ) [ ]b) Severe hypoxemia (partial pressure of oxygen less than 50 mm Hg ( 6.7 kPa) on greater than 50% oxygen or partial pressure of oxygen to FIO2 ratio less than 200) [ ]c) Mental status deterioration from respiratory disease [ ]V. Airway obstruction or inadequate protection [A](10)(11) The original [employer] content created by [employer] has been revised. The portions of the content which have been revised are identified through the use of italic text or in bold, and [employer] has neither reviewed nor approved the modified material. All other unmodified content is copyright [employer]. Please see references footnoted in the original [employer] edition 2016 Admission Criteria Met: Yes
[2017-02-04] MEDS: PULMICORT IH SCH ×2 (12:09→21:13)
[2017-02-04] MEDS: OxyCONTIN PO SCH ×2 (13:16→21:35)
[2017-02-04] MEDS: DUONEB *Not for PRN Use IH SCH ×2 (13:51→21:13)
[2017-02-04] MEDS ORDERED: OxyCONTIN PO SCH (17:00)
[2017-02-05 05:40] LABS: Hematocrit 33.5 % (35.5-45.6); Hemoglobin 10.4 gm/dl (11.8-15.2); Mean Corpuscular HGB Conc 31 % (32-34); Mean Corpuscular Hemoglobin 31 pg (28-32); Mean Corpuscular Volume 99 fl (84-94); Platelet Count 296 K/mm3 (140-440); Red Blood Count 3.39 M/mm3 (3.65-5.03); Red Cell Distribution Width 15.1 % (13.2-15.2); White Blood Count 5.8 K/mm3 (4.5-11.0)
[2017-02-05 05:56] LABS: BUN/Creatinine Ratio 28.33; Blood Urea Nitrogen 17 mg/dL (9-20); Calcium 8.8 mg/dL (8.4-10.2); Chloride 93.2 mmol/L (98-107); Glucose 116 mg/dL (75-100); Potassium 5.8 mmol/L (3.6-5.0); Sodium 139 mmol/L (137-145)
[2017-02-05 05:57] LABS: Anion Gap 11 mmol/L
[2017-02-05 05:58] LABS: Carbon Dioxide 41 mmol/L (22-30)
[2017-02-05 07:11] LABS: Blastocytes % (Manual) 0 %; Eosinophils % (Manual) 0 % (0.0-4.3)
[2017-02-05 07:12] LABS: Anisocytosis 1+; Hypochromasia 1+
[2017-02-05 07:13] LABS: Macrocytosis 1+; Ovalocytes Few; Polychromasia Few
[2017-02-05 07:15] LABS: Diff Status Complete
[2017-02-05] MEDS: DUONEB *Not for PRN Use IH SCH ×3 (08:26→20:07)
[2017-02-05] MEDS: PULMICORT IH SCH ×2 (08:26→20:07)
[2017-02-05] MEDS ORDERED: CALCIUM GLUCONATE 1,000 MG in NACL 0.9% 100 ML IV ONE (09:04)
[2017-02-05] MEDS ORDERED: KIONEX PO ONE (09:06)
[2017-02-05] MEDS: ROCEPHIN/NS 1 GM/50 ML 1 GM/50 ML BAG IV SCH (09:39)
[2017-02-05] MEDS: LOVENOX SUB-Q SCH (09:40)
[2017-02-05] MEDS: OxyCONTIN PO SCH ×2 (09:41→21:24)
[2017-02-05] MEDS: PREZISTA PO SCH (09:41)
[2017-02-05] MEDS: ZESTRIL PO SCH (09:42)
[2017-02-05] MEDS: COREG PO SCH ×2 (09:43→21:30)
--- NOTE | 2017-02-05 11:17 | Discharge Summary ---
Providers - Providers Date of Admission: 02/03/17 22:47 Date of discharge: 02/05/17 Attending physician: CLAUDIA NICHOLSON Primary care physician: CAPRICE HADDAD MD Hospitalization Condition: Fair Disposition: DC-50 TO HOSPICE (HOME) Exam - Constitutional Vitals: Temp Pulse Resp BP Pulse Ox 97.7 F 81 18 134/87 98 02/05/17 08:00 02/05/17 09:43 02/05/17 08:41 02/05/17 09:43 02/05/17 08:30 Plan Follow up with: CAPRICE HADDAD MD [Primary Care Provider] - 3-5 Days
[2017-02-05] MEDS: ZITHROMAX 500 MG in NACL 0.9% 250ML 250 ML IV SCH (15:33)
[2017-02-05] MEDS: PERCOCET 5/325 PO PRN (15:40)
--- NOTE | 2017-02-05 17:09 | Progress Note ---
Assessment and Plan Assessment and plan: --Acute respiratory failure Secondary to pneumonia and underlying COPD oxygen titrate to O2 sats more than 90%, supportive care. BiPAP as needed, and continues to have shortness of breath secondary to underlying disease process --Community-acquired pneumonia Continue current antibiotics, follow cultures, supportive care of HIV --History of HIV; end-stage AIDS continue antiretrovirals, recommend hospice --COPD , Oxygen, nebulizers, inhalation steroids --History of hepatitis C; stable --DVT prophylaxis with Lovenox Code status discussed with the patient in view of end-stage HIV AIDS, cachexia and poor prognosis Patient wants to be under hospice care however want to discuss family about CODE STATUS Full CODE STATUS Patient's condition treatment plan discussed in detail with the patient, his nurse and case management History Interval history: Patient seen and evaluated this morning medical records reviewed Patient was complaining of generalized body pains, wants hospice placement Chronically ill-looking cachectic, in macerated, mild distress Hospitalist Physical - Constitutional Vitals: Temp Pulse Resp BP Pulse Ox 97.7 F 79 16 134/87 98 02/05/17 08:00 02/05/17 14:43 02/05/17 14:43 02/05/17 09:43 02/05/17 08:30 General appearance: Present: no acute distress, cachectic, disheveled, other ( emaciated) - EENT Eyes: Present: PERRL, EOM intact - Neck Neck: Present: supple, normal ROM - Respiratory Respiratory effort: normal Respiratory: bilateral: diminished, rhonchi, negative: rales, wheezing - Cardiovascular Rhythm: regular Heart Sounds: Present: S1 & S2 - Extremities Extremities: No edema, normal temperature - Abdominal General gastrointestinal: soft, non-tender, non-distended, normal bowel sounds - Integumentary Integumentary: Present: clear, warm, decreased turgor - Psychiatric Psychiatric: appropriate mood/affect, cooperative - Neurologic Neurologic: CNII-XII intact, moves all extremities Results - Labs CBC & Chem 7: 02/05/17 05:11 02/05/17 05:11 Labs: Laboratory Last Values WBC 5.8 K/mm3 (4.5-11.0) 02/05/17 05:11 RBC 3.39 M/mm3 (3.65-5.03) L 02/05/17 05:11 Hgb 10.4 gm/dl (11.8-15.2) L 02/05/17 05:11 Hct 33.5 % (35.5-45.6) L 02/05/17 05:11 MCV 99 fl (84-94) H 02/05/17 05:11 MCH 31 pg (28-32) 02/05/17 05:11 MCHC 31 % (32-34) L 02/05/17 05:11 RDW 15.1 % (13.2-15.2) 02/05/17 05:11 Plt Count 296 K/mm3 (140-440) 02/05/17 05:11 Lymph % (Auto) Public Health Service Officer 02/03/17 19:41 [place] % (Auto) Public Health Service Officer 02/05/17 05:11 Eos % (Auto) Public Health Service Officer 02/03/17 19:41 Baso % (Auto) Public Health Service Officer 02/03/17 19:41 Lymph # Public Health Service Officer 02/03/17 19:41 [place] # Public Health Service Officer 02/03/17 19:41 Eos # Public Health Service Officer 02/03/17 19:41 Baso # Public Health Service Officer 02/03/17 19:41 Add Manual Diff Complete 02/05/17 05:11 Total Counted 100 02/05/17 05:11 Seg Neutrophils % Public Health Service Officer 02/03/17 19:41 Seg Neuts % (Manual) 26.0 % (40.0-70.0) L 02/05/17 05:11 Band Neutrophils % 37.0 % 02/05/17 05:11 Lymphocytes % (Manual) 20.0 % (13.4-35.0) 02/05/17 05:11 Reactive Lymphs % (Man) 0 % 02/05/17 05:11 Monocytes % (Manual) 13.0 % (0.0-7.3) H 02/05/17 05:11 Eosinophils % (Manual) 0 % (0.0-4.3) 02/05/17 05:11 Basophils % (Manual) 0 % (0.0-1.8) 02/03/17 19:41 Metamyelocytes % 4.0 % 02/05/17 05:11 Myelocytes % 0 % 02/05/17 05:11 Promyelocytes % 0 % 02/05/17 05:11 Blast Cells % 0 % 02/05/17 05:11 Nucleated RBC % 3.0 % (0.0-0.9) H 02/05/17 05:11 Seg Neutrophils # Public Health Service Officer 02/03/17 19:41 Seg Neutrophils # Man 1.5 K/mm3 (1.8-7.7) L 02/05/17 05:11 Band Neutrophils # 2.1 K/mm3 02/05/17 05:11 Lymphocytes # (Manual) 1.2 K/mm3 (1.2-5.4) 02/05/17 05:11 Abs React Lymphs (Man) 0.0 K/mm3 02/05/17 05:11 Monocytes # (Manual) 0.8 K/mm3 (0.0-0.8) 02/05/17 05:11 Eosinophils # (Manual) 0.0 K/mm3 (0.0-0.4) 02/05/17 05:11 Basophils # (Manual) 0.0 K/mm3 (0.0-0.1) 02/05/17 05:11 Metamyelocytes # 0.2 K/mm3 02/05/17 05:11 Myelocytes # 0.0 K/mm3 02/05/17 05:11 Promyelocytes # 0.0 K/mm3 02/05/17 05:11 Blast Cells # 0.0 K/mm3 02/05/17 05:11 WBC Morphology Not Reportable 02/05/17 05:11 Hypersegmented Neuts Not Reportable 02/05/17 05:11 Hyposegmented Neuts Not Reportable 02/05/17 05:11 Hypogranular Neuts Not Reportable 02/05/17 05:11 Smudge Cells Not Reportable 02/05/17 05:11 Toxic Granulation Not Reportable 02/05/17 05:11 Toxic Vacuolation Not Reportable 02/05/17 05:11 Dohle Bodies Not Reportable 02/05/17 05:11 Pelger-Huet Anomaly Not Reportable 02/05/17 05:11 David Rods Not Reportable 02/05/17 05:11 Platelet Estimate Appears normal 02/05/17 05:11 Clumped Platelets Not Reportable 02/05/17 05:11 Plt Clumps, EDTA Not Reportable 02/05/17 05:11 Large Platelets Not Reportable 02/05/17 05:11 Giant Platelets Not Reportable 02/05/17 05:11 Platelet Satelliting Not Reportable 02/05/17 05:11 Plt Morphology Comment Not Reportable 02/05/17 05:11 RBC Morphology Not Reportable 02/05/17 05:11 Dimorphic RBCs Not Reportable 02/05/17 05:11 Polychromasia Few 02/05/17 05:11 Hypochromasia 1+ 02/05/17 05:11 Poikilocytosis Not Reportable 02/05/17 05:11 Anisocytosis 1+ 02/05/17 05:11 Microcytosis Not Reportable 02/05/17 05:11 Macrocytosis 1+ 02/05/17 05:11 Spherocytes Not Reportable 02/05/17 05:11 Pappenheimer Bodies Not Reportable 02/05/17 05:11 Sickle Cells Not Reportable 02/05/17 05:11 Target Cells Not Reportable 02/05/17 05:11 Tear Drop Cells Not Reportable 02/05/17 05:11 Ovalocytes Few 02/05/17 05:11 Helmet Cells Not Reportable 02/05/17 05:11 [place] Bodies Not Reportable 02/05/17 05:11 [place] Rings Not Reportable 02/05/17 05:11 Mery Cells Not Reportable 02/05/17 05:11 Bite Cells Not Reportable 02/05/17 05:11 Crenated Cell Not Reportable 02/05/17 05:11 Elliptocytes Not Reportable 02/05/17 05:11 Acanthocytes (Spur) Not Reportable 02/05/17 05:11 Rouleaux Not Reportable 02/05/17 05:11 Hemoglobin C Crystals Not Reportable 02/05/17 05:11 Schistocytes Not Reportable 02/05/17 05:11 Malaria parasites Not Reportable 02/05/17 05:11 Jamal Bodies Not Reportable 02/05/17 05:11 Hem Pathologist Commnt No 02/05/17 05:11 POC ABG pH 7.343 (7.35-7.45) L 02/03/17 21:33 POC ABG pCO2 86.4 (35-45) H 02/03/17 21:33 POC ABG pO2 125 (80-105) H 02/03/17 21:33 POC ABG HCO3 47.0 02/03/17 21:33 POC ABG Total CO2 50 02/03/17 21:33 POC ABG O2 Sat 98 02/03/17 21:33 POC ABG Base Excess 21 02/03/17 21:33 FiO2 40 % 02/03/17 21:33 Sodium 139 mmol/L (137-145) 02/05/17 05:11 Potassium 5.8 mmol/L (3.6-5.0) H 02/05/17 05:11 Chloride 93.2 mmol/L (98-107) L 02/05/17 05:11 Carbon Dioxide 41 mmol/L (22-30) H* 02/05/17 05:11 Anion Gap 11 mmol/L 02/05/17 05:11 BUN 17 mg/dL (9-20) 02/05/17 05:11 Creatinine 0.6 mg/dL (0.8-1.5) L 02/05/17 05:11 Estimated GFR > 60 ml/min 02/05/17 05:11 BUN/Creatinine Ratio 28.33 % 02/05/17 05:11 Glucose 116 mg/dL (75-100) H 02/05/17 05:11 Lactic Acid 0.70 mmol/L (0.7-2.0) 02/04/17 01:15 Calcium 8.8 mg/dL (8.4-10.2) 02/05/17 05:11 Total Bilirubin 0.20 mg/dL (0.1-1.2) 02/03/17 19:41 AST 13 units/L (5-40) 02/03/17 19:41 ALT 10 units/L (7-56) 02/03/17 19:41 Alkaline Phosphatase 95 units/L (35-129) 02/03/17 19:41 Troponin T 0.024 ng/mL (0.00-0.029) 02/03/17 22:02 Total Protein 6.7 g/dL (6.3-8.2) 02/03/17 19:41 Albumin 3.1 g/dL (3.9-5) L 02/03/17 19:41 Albumin/Globulin Ratio 0.9 % 02/03/17 19:41 Urine Color Yellow (Yellow) 02/04/17 00:15 Urine Turbidity Clear (Clear) 02/04/17 00:15 Urine pH 5.0 (5.0-7.0) 02/04/17 00:15 Ur Specific [place] 1.023 (1.003-1.030) 02/04/17 00:15 Urine Protein 100 mg/dl mg/dL (Negative) 02/04/17 00:15 Urine Glucose (UA) Neg mg/dL (Negative) 02/04/17 00:15 Urine Ketones Neg mg/dL (Negative) 02/04/17 00:15 Urine Blood Neg (Negative) 02/04/17 00:15 Urine Nitrite Neg (Negative) 02/04/17 00:15 Urine Bilirubin Neg (Negative) 02/04/17 00:15 Urine Urobilinogen 2.0 mg/dL (<2.0) 02/04/17 00:15 Ur Leukocyte Esterase Neg (Negative) 02/04/17 00:15 Urine WBC (Auto) 1.0 /HPF (0.0-6.0) 02/04/17 00:15 Urine RBC (Auto) 1.0 /HPF (0.0-6.0) 02/04/17 00:15 U Epithel Cells (Auto) 1.0 /HPF (0-13.0) 02/04/17 00:15 Urine Mucus Few /HPF 02/04/17 00:15
[2017-02-05] MEDS ORDERED: NACL 0.9% 1000 ML 1,000 ML IV SCH (18:00)
[2017-02-06 06:54] LABS: Blood Urea Nitrogen 15 mg/dL (9-20); Chloride 92.7 mmol/L (98-107); Glucose 104 mg/dL (75-100); Potassium 4.7 mmol/L (3.6-5.0); Sodium 141 mmol/L (137-145)
[2017-02-06 07:07] LABS: Anion Gap 9 mmol/L; Carbon Dioxide 44 mmol/L (22-30)
[2017-02-06] MEDS: ZESTRIL PO SCH (10:25)
[2017-02-06] MEDS: PREZISTA PO SCH (10:25)
[2017-02-06] MEDS: LOVENOX SUB-Q SCH (10:26)
[2017-02-06] MEDS: COREG PO SCH ×2 (10:26→21:11)
[2017-02-06] MEDS: OxyCONTIN PO SCH ×2 (10:26→21:06)
[2017-02-06] MEDS: ROCEPHIN/NS 1 GM/50 ML 1 GM/50 ML BAG IV SCH (10:27)
[2017-02-06] MEDS: DUONEB *Not for PRN Use IH SCH ×3 (10:59→19:39)
[2017-02-06] MEDS: PULMICORT IH SCH ×2 (10:59→19:39)
[2017-02-06] MEDS: ZITHROMAX 500 MG in NACL 0.9% 250ML 250 ML IV SCH (11:24)
[2017-02-06] MEDS: PERCOCET 5/325 PO PRN ×2 (14:34→23:48)
[2017-02-06] MEDS ORDERED: DEEP SEA NS PRN (15:15)
--- NOTE | 2017-02-06 15:47 | Progress Note ---
Assessment and Plan Assessment and plan: --Acute respiratory failure Secondary to pneumonia and underlying COPD oxygen titrate to O2 sats more than 90%, supportive care. BiPAP as needed, and continues to have shortness of breath secondary to underlying disease process --Community-acquired pneumonia Continue current antibiotics, follow cultures, supportive care of HIV --History of HIV; end-stage AIDS continue antiretrovirals, recommend hospice --COPD , Oxygen, nebulizers, inhalation steroids --History of hepatitis C; stable --DVT prophylaxis with Lovenox Code status discussed with the patient in view of end-stage HIV AIDS, cachexia and poor prognosis Patient does not want hospice, repeat chest x-ray Possible discharge home with home health tomorrow if stable Full CODE STATUS Patient's condition treatment plan discussed in detail with the patient, his nurse and case management History Interval history: Patient seen and evaluated medical records reviewed No new events reported by nursing staff Patient continues to have worsening shortness of breath, complaints of generalized weakness Alert awake oriented 3, mild distress Hospitalist Physical - Constitutional Vitals: Temp Pulse Resp BP Pulse Ox 98.7 F 104 H 20 123/83 100 02/06/17 07:00 02/06/17 10:57 02/06/17 10:57 02/06/17 10:26 02/06/17 07:00 General appearance: Present: no acute distress, cachectic, disheveled, other ( emaciated) - EENT Eyes: Present: PERRL, EOM intact - Neck Neck: Present: supple, normal ROM - Respiratory Respiratory effort: normal Respiratory: bilateral: diminished, rhonchi, negative: rales, wheezing - Cardiovascular Rhythm: regular Heart Sounds: Present: S1 & S2 - Extremities Extremities: no ischemia, pulses intact, pulses symmetrical - Abdominal General gastrointestinal: soft, non-tender, non-distended, normal bowel sounds - Integumentary Integumentary: Present: clear, warm - Psychiatric Psychiatric: appropriate mood/affect, cooperative - Neurologic Neurologic: CNII-XII intact, moves all extremities Results - Labs CBC & Chem 7: 02/05/17 05:11 02/06/17 06:02 Labs: Laboratory Last Values WBC 5.8 K/mm3 (4.5-11.0) 02/05/17 05:11 RBC 3.39 M/mm3 (3.65-5.03) L 02/05/17 05:11 Hgb 10.4 gm/dl (11.8-15.2) L 02/05/17 05:11 Hct 33.5 % (35.5-45.6) L 02/05/17 05:11 MCV 99 fl (84-94) H 02/05/17 05:11 MCH 31 pg (28-32) 02/05/17 05:11 MCHC 31 % (32-34) L 02/05/17 05:11 RDW 15.1 % (13.2-15.2) 02/05/17 05:11 Plt Count 296 K/mm3 (140-440) 02/05/17 05:11 Lymph % (Auto) Agriculture Scientist 02/03/17 19:41 [place] % (Auto) Agriculture Scientist 02/05/17 05:11 Eos % (Auto) Agriculture Scientist 02/03/17 19:41 Baso % (Auto) Agriculture Scientist 02/03/17 19:41 Lymph # Agriculture Scientist 02/03/17 19:41 [place] # Agriculture Scientist 02/03/17 19:41 Eos # Agriculture Scientist 02/03/17 19:41 Baso # Agriculture Scientist 02/03/17 19:41 Add Manual Diff Complete 02/05/17 05:11 Total Counted 100 02/05/17 05:11 Seg Neutrophils % Agriculture Scientist 02/03/17 19:41 Seg Neuts % (Manual) 26.0 % (40.0-70.0) L 02/05/17 05:11 Band Neutrophils % 37.0 % 02/05/17 05:11 Lymphocytes % (Manual) 20.0 % (13.4-35.0) 02/05/17 05:11 Reactive Lymphs % (Man) 0 % 02/05/17 05:11 Monocytes % (Manual) 13.0 % (0.0-7.3) H 02/05/17 05:11 Eosinophils % (Manual) 0 % (0.0-4.3) 02/05/17 05:11 Basophils % (Manual) 0 % (0.0-1.8) 02/03/17 19:41 Metamyelocytes % 4.0 % 02/05/17 05:11 Myelocytes % 0 % 02/05/17 05:11 Promyelocytes % 0 % 02/05/17 05:11 Blast Cells % 0 % 02/05/17 05:11 Nucleated RBC % 3.0 % (0.0-0.9) H 02/05/17 05:11 Seg Neutrophils # Agriculture Scientist 02/03/17 19:41 Seg Neutrophils # Man 1.5 K/mm3 (1.8-7.7) L 02/05/17 05:11 Band Neutrophils # 2.1 K/mm3 02/05/17 05:11 Lymphocytes # (Manual) 1.2 K/mm3 (1.2-5.4) 02/05/17 05:11 Abs React Lymphs (Man) 0.0 K/mm3 02/05/17 05:11 Monocytes # (Manual) 0.8 K/mm3 (0.0-0.8) 02/05/17 05:11 Eosinophils # (Manual) 0.0 K/mm3 (0.0-0.4) 02/05/17 05:11 Basophils # (Manual) 0.0 K/mm3 (0.0-0.1) 02/05/17 05:11 Metamyelocytes # 0.2 K/mm3 02/05/17 05:11 Myelocytes # 0.0 K/mm3 02/05/17 05:11 Promyelocytes # 0.0 K/mm3 02/05/17 05:11 Blast Cells # 0.0 K/mm3 02/05/17 05:11 WBC Morphology Not Reportable 02/05/17 05:11 Hypersegmented Neuts Not Reportable 02/05/17 05:11 Hyposegmented Neuts Not Reportable 02/05/17 05:11 Hypogranular Neuts Not Reportable 02/05/17 05:11 Smudge Cells Not Reportable 02/05/17 05:11 Toxic Granulation Not Reportable 02/05/17 05:11 Toxic Vacuolation Not Reportable 02/05/17 05:11 Dohle Bodies Not Reportable 02/05/17 05:11 Pelger-Huet Anomaly Not Reportable 02/05/17 05:11 David Rods Not Reportable 02/05/17 05:11 Platelet Estimate Appears normal 02/05/17 05:11 Clumped Platelets Not Reportable 02/05/17 05:11 Plt Clumps, EDTA Not Reportable 02/05/17 05:11 Large Platelets Not Reportable 02/05/17 05:11 Giant Platelets Not Reportable 02/05/17 05:11 Platelet Satelliting Not Reportable 02/05/17 05:11 Plt Morphology Comment Not Reportable 02/05/17 05:11 RBC Morphology Not Reportable 02/05/17 05:11 Dimorphic RBCs Not Reportable 02/05/17 05:11 Polychromasia Few 02/05/17 05:11 Hypochromasia 1+ 02/05/17 05:11 Poikilocytosis Not Reportable 02/05/17 05:11 Anisocytosis 1+ 02/05/17 05:11 Microcytosis Not Reportable 02/05/17 05:11 Macrocytosis 1+ 02/05/17 05:11 Spherocytes Not Reportable 02/05/17 05:11 Pappenheimer Bodies Not Reportable 02/05/17 05:11 Sickle Cells Not Reportable 02/05/17 05:11 Target Cells Not Reportable 02/05/17 05:11 Tear Drop Cells Not Reportable 02/05/17 05:11 Ovalocytes Few 02/05/17 05:11 Helmet Cells Not Reportable 02/05/17 05:11 [place] Bodies Not Reportable 02/05/17 05:11 [place] Rings Not Reportable 02/05/17 05:11 Mery Cells Not Reportable 02/05/17 05:11 Bite Cells Not Reportable 02/05/17 05:11 Crenated Cell Not Reportable 02/05/17 05:11 Elliptocytes Not Reportable 02/05/17 05:11 Acanthocytes (Spur) Not Reportable 02/05/17 05:11 Rouleaux Not Reportable 02/05/17 05:11 Hemoglobin C Crystals Not Reportable 02/05/17 05:11 Schistocytes Not Reportable 02/05/17 05:11 Malaria parasites Not Reportable 02/05/17 05:11 Jamal Bodies Not Reportable 02/05/17 05:11 Hem Pathologist Commnt No 02/05/17 05:11 POC ABG pH 7.343 (7.35-7.45) L 02/03/17 21:33 POC ABG pCO2 86.4 (35-45) H 02/03/17 21:33 POC ABG pO2 125 (80-105) H 02/03/17 21:33 POC ABG HCO3 47.0 02/03/17 21:33 POC ABG Total CO2 50 02/03/17 21:33 POC ABG O2 Sat 98 02/03/17 21:33 POC ABG Base Excess 21 02/03/17 21:33 FiO2 40 % 02/03/17 21:33 Sodium 141 mmol/L (137-145) 02/06/17 06:02 Potassium 4.7 mmol/L (3.6-5.0) 02/06/17 06:02 Chloride 92.7 mmol/L (98-107) L 02/06/17 06:02 Carbon Dioxide 44 mmol/L (22-30) H* 02/06/17 06:02 Anion Gap 9 mmol/L 02/06/17 06:02 BUN 15 mg/dL (9-20) 02/06/17 06:02 Creatinine 0.5 mg/dL (0.8-1.5) L 02/06/17 06:02 Estimated GFR > 60 ml/min 02/06/17 06:02 BUN/Creatinine Ratio 30.00 % 02/06/17 06:02 Glucose 104 mg/dL (75-100) H 02/06/17 06:02 Lactic Acid 0.70 mmol/L (0.7-2.0) 02/04/17 01:15 Calcium 9.0 mg/dL (8.4-10.2) 02/06/17 06:02 Magnesium 2.20 mg/dL (1.7-2.3) 02/06/17 06:02 Total Bilirubin 0.20 mg/dL (0.1-1.2) 02/03/17 19:41 AST 13 units/L (5-40) 02/03/17 19:41 ALT 10 units/L (7-56) 02/03/17 19:41 Alkaline Phosphatase 95 units/L (35-129) 02/03/17 19:41 Troponin T 0.024 ng/mL (0.00-0.029) 02/03/17 22:02 Total Protein 6.7 g/dL (6.3-8.2) 02/03/17 19:41 Albumin 3.1 g/dL (3.9-5) L 02/03/17 19:41 Albumin/Globulin Ratio 0.9 % 02/03/17 19:41 Urine Color Yellow (Yellow) 02/04/17 00:15 Urine Turbidity Clear (Clear) 02/04/17 00:15 Urine pH 5.0 (5.0-7.0) 02/04/17 00:15 Ur Specific [place] 1.023 (1.003-1.030) 02/04/17 00:15 Urine Protein 100 mg/dl mg/dL (Negative) 02/04/17 00:15 Urine Glucose (UA) Neg mg/dL (Negative) 02/04/17 00:15 Urine Ketones Neg mg/dL (Negative) 02/04/17 00:15 Urine Blood Neg (Negative) 02/04/17 00:15 Urine Nitrite Neg (Negative) 02/04/17 00:15 Urine Bilirubin Neg (Negative) 02/04/17 00:15 Urine Urobilinogen 2.0 mg/dL (<2.0) 02/04/17 00:15 Ur Leukocyte Esterase Neg (Negative) 02/04/17 00:15 Urine WBC (Auto) 1.0 /HPF (0.0-6.0) 02/04/17 00:15 Urine RBC (Auto) 1.0 /HPF (0.0-6.0) 02/04/17 00:15 U Epithel Cells (Auto) 1.0 /HPF (0-13.0) 02/04/17 00:15 Urine Mucus Few /HPF 02/04/17 00:15
[2017-02-06] MEDS: MEGACE PO SCH (17:10)
[2017-02-07] MEDS: DUONEB *Not for PRN Use IH SCH ×3 (07:24→20:03)
[2017-02-07] MEDS: PULMICORT IH SCH ×2 (07:24→20:03)
[2017-02-07] MEDS: PERCOCET 5/325 PO PRN ×3 (08:16→20:40)
--- NOTE | 2017-02-07 09:01 | XRay Report ---
CHEST 2 VIEWS INDICATION: Followup pneumonitis. COMPARISON: 02/03/2017 FINDINGS: Frontal and lateral chest radiographs demonstrate interval bibasilar worsening with increased hazy opacities/small pleural effusions and underlying pneumonias. Lung markings again somewhat crowded centrally. Stable cardiomediastinal silhouette. Increased retrosternal space/COPD. Stable bones, including slight mid thoracic kyphosis. CONCLUSION: Worsening bibasilar opacities/pneumonias with small bilateral pleural effusions also now noted, as above. Thank you for the opportunity to participate in this patient's care.
[2017-02-07] MEDS: LOVENOX SUB-Q SCH (09:10)
[2017-02-07] MEDS: MEGACE PO SCH (09:11)
[2017-02-07] MEDS: PREZISTA PO SCH (09:11)
[2017-02-07] MEDS: COREG PO SCH ×2 (09:12→22:35)
[2017-02-07] MEDS: ZESTRIL PO SCH (09:13)
[2017-02-07] MEDS: ROCEPHIN/NS 1 GM/50 ML 1 GM/50 ML BAG IV SCH (09:13)
[2017-02-07] MEDS: OxyCONTIN PO SCH ×2 (09:13→22:30)
[2017-02-07] MEDS: ZITHROMAX 500 MG in NACL 0.9% 250ML 250 ML IV SCH (09:47)
--- NOTE | 2017-02-07 19:47 | Progress Note ---
Assessment and Plan Assessment and plan: --Community-acquired pneumonia Continue current antibiotics, cultures negative to date Continue supportive care --Acute respiratory failure Secondary to pneumonia and underlying COPD oxygen titrate to O2 sats more than 90%, supportive care. BiPAP as needed, and continues to have shortness of breath secondary to underlying disease process --History of HIV; stings syndrome /end-stage AIDS continue antiretrovirals, recommend hospice --COPD , Oxygen, nebulizers, inhalation steroids --History of hepatitis C; stable --DVT prophylaxis with Lovenox Code status discussed with the patient in view of end-stage HIV AIDS, cachexia and poor prognosis Patient does not want hospice, repeat chest x-ray Possible discharge home with home health tomorrow if stable Full CODE STATUS Patient's condition treatment plan discussed in detail with the patient, his nurse and case management History Interval history: Patient seen and evaluated medical records reviewed No new events reported by the nursing staff Patient is severely ill looking, short of breath, cachectic and dehydrated Complaints of generalized weakness, alert awake oriented 3 in mild distress Hospitalist Physical - Constitutional Vitals: Temp Pulse Resp BP Pulse Ox 98.7 F 82 20 132/81 96 02/07/17 15:05 02/07/17 15:05 02/07/17 15:05 02/07/17 15:05 02/07/17 07:26 General appearance: Present: no acute distress, cachectic, disheveled, other ( emaciated) - EENT Eyes: Present: PERRL, EOM intact - Neck Neck: Present: supple, normal ROM - Respiratory Respiratory effort: normal Respiratory: bilateral: diminished, rhonchi, negative: rales, wheezing - Cardiovascular Rhythm: regular Heart Sounds: Present: S1 & S2 - Extremities Extremities: no ischemia, pulses intact - Abdominal General gastrointestinal: soft, non-tender, non-distended, normal bowel sounds - Integumentary Integumentary: Present: clear, warm - Psychiatric Psychiatric: appropriate mood/affect, cooperative - Neurologic Neurologic: moves all extremities Results - Labs CBC & Chem 7: 02/05/17 05:11 02/06/17 06:02 Labs: Laboratory Last Values WBC 5.8 K/mm3 (4.5-11.0) 02/05/17 05:11 RBC 3.39 M/mm3 (3.65-5.03) L 02/05/17 05:11 Hgb 10.4 gm/dl (11.8-15.2) L 02/05/17 05:11 Hct 33.5 % (35.5-45.6) L 02/05/17 05:11 MCV 99 fl (84-94) H 02/05/17 05:11 MCH 31 pg (28-32) 02/05/17 05:11 MCHC 31 % (32-34) L 02/05/17 05:11 RDW 15.1 % (13.2-15.2) 02/05/17 05:11 Plt Count 296 K/mm3 (140-440) 02/05/17 05:11 Lymph % (Auto) Purchasing Officer 02/03/17 19:41 Brantley % (Auto) Purchasing Officer 02/05/17 05:11 Eos % (Auto) Purchasing Officer 02/03/17 19:41 Baso % (Auto) Purchasing Officer 02/03/17 19:41 Lymph # Purchasing Officer 02/03/17 19:41 Brantley # Purchasing Officer 02/03/17 19:41 Eos # Purchasing Officer 02/03/17 19:41 Baso # Purchasing Officer 02/03/17 19:41 Add Manual Diff Complete 02/05/17 05:11 Total Counted 100 02/05/17 05:11 Seg Neutrophils % Purchasing Officer 02/03/17 19:41 Seg Neuts % (Manual) 26.0 % (40.0-70.0) L 02/05/17 05:11 Band Neutrophils % 37.0 % 02/05/17 05:11 Lymphocytes % (Manual) 20.0 % (13.4-35.0) 02/05/17 05:11 Reactive Lymphs % (Man) 0 % 02/05/17 05:11 Monocytes % (Manual) 13.0 % (0.0-7.3) H 02/05/17 05:11 Eosinophils % (Manual) 0 % (0.0-4.3) 02/05/17 05:11 Basophils % (Manual) 0 % (0.0-1.8) 02/03/17 19:41 Metamyelocytes % 4.0 % 02/05/17 05:11 Myelocytes % 0 % 02/05/17 05:11 Promyelocytes % 0 % 02/05/17 05:11 Blast Cells % 0 % 02/05/17 05:11 Nucleated RBC % 3.0 % (0.0-0.9) H 02/05/17 05:11 Seg Neutrophils # Purchasing Officer 02/03/17 19:41 Seg Neutrophils # Man 1.5 K/mm3 (1.8-7.7) L 02/05/17 05:11 Band Neutrophils # 2.1 K/mm3 02/05/17 05:11 Lymphocytes # (Manual) 1.2 K/mm3 (1.2-5.4) 02/05/17 05:11 Abs React Lymphs (Man) 0.0 K/mm3 02/05/17 05:11 Monocytes # (Manual) 0.8 K/mm3 (0.0-0.8) 02/05/17 05:11 Eosinophils # (Manual) 0.0 K/mm3 (0.0-0.4) 02/05/17 05:11 Basophils # (Manual) 0.0 K/mm3 (0.0-0.1) 02/05/17 05:11 Metamyelocytes # 0.2 K/mm3 02/05/17 05:11 Myelocytes # 0.0 K/mm3 02/05/17 05:11 Promyelocytes # 0.0 K/mm3 02/05/17 05:11 Blast Cells # 0.0 K/mm3 02/05/17 05:11 WBC Morphology Not Reportable 02/05/17 05:11 Hypersegmented Neuts Not Reportable 02/05/17 05:11 Hyposegmented Neuts Not Reportable 02/05/17 05:11 Hypogranular Neuts Not Reportable 02/05/17 05:11 Smudge Cells Not Reportable 02/05/17 05:11 Toxic Granulation Not Reportable 02/05/17 05:11 Toxic Vacuolation Not Reportable 02/05/17 05:11 Dohle Bodies Not Reportable 02/05/17 05:11 Pelger-Huet Anomaly Not Reportable 02/05/17 05:11 David Rods Not Reportable 02/05/17 05:11 Platelet Estimate Appears normal 02/05/17 05:11 Clumped Platelets Not Reportable 02/05/17 05:11 Plt Clumps, EDTA Not Reportable 02/05/17 05:11 Large Platelets Not Reportable 02/05/17 05:11 Giant Platelets Not Reportable 02/05/17 05:11 Platelet Satelliting Not Reportable 02/05/17 05:11 Plt Morphology Comment Not Reportable 02/05/17 05:11 RBC Morphology Not Reportable 02/05/17 05:11 Dimorphic RBCs Not Reportable 02/05/17 05:11 Polychromasia Few 02/05/17 05:11 Hypochromasia 1+ 02/05/17 05:11 Poikilocytosis Not Reportable 02/05/17 05:11 Anisocytosis 1+ 02/05/17 05:11 Microcytosis Not Reportable 02/05/17 05:11 Macrocytosis 1+ 02/05/17 05:11 Spherocytes Not Reportable 02/05/17 05:11 Pappenheimer Bodies Not Reportable 02/05/17 05:11 Sickle Cells Not Reportable 02/05/17 05:11 Target Cells Not Reportable 02/05/17 05:11 Tear Drop Cells Not Reportable 02/05/17 05:11 Ovalocytes Few 02/05/17 05:11 Helmet Cells Not Reportable 02/05/17 05:11 [place] Bodies Not Reportable 02/05/17 05:11 [place] Rings Not Reportable 02/05/17 05:11 Mery Cells Not Reportable 02/05/17 05:11 Bite Cells Not Reportable 02/05/17 05:11 Crenated Cell Not Reportable 02/05/17 05:11 Elliptocytes Not Reportable 02/05/17 05:11 Acanthocytes (Spur) Not Reportable 02/05/17 05:11 Rouleaux Not Reportable 02/05/17 05:11 Hemoglobin C Crystals Not Reportable 02/05/17 05:11 Schistocytes Not Reportable 02/05/17 05:11 Malaria parasites Not Reportable 02/05/17 05:11 Jamal Bodies Not Reportable 02/05/17 05:11 Hem Pathologist Commnt No 02/05/17 05:11 POC ABG pH 7.343 (7.35-7.45) L 02/03/17 21:33 POC ABG pCO2 86.4 (35-45) H 02/03/17 21:33 POC ABG pO2 125 (80-105) H 02/03/17 21:33 POC ABG HCO3 47.0 02/03/17 21:33 POC ABG Total CO2 50 02/03/17 21:33 POC ABG O2 Sat 98 02/03/17 21:33 POC ABG Base Excess 21 02/03/17 21:33 FiO2 40 % 02/03/17 21:33 Sodium 141 mmol/L (137-145) 02/06/17 06:02 Potassium 4.7 mmol/L (3.6-5.0) 02/06/17 06:02 Chloride 92.7 mmol/L (98-107) L 02/06/17 06:02 Carbon Dioxide 44 mmol/L (22-30) H* 02/06/17 06:02 Anion Gap 9 mmol/L 02/06/17 06:02 BUN 15 mg/dL (9-20) 02/06/17 06:02 Creatinine 0.5 mg/dL (0.8-1.5) L 02/06/17 06:02 Estimated GFR > 60 ml/min 02/06/17 06:02 BUN/Creatinine Ratio 30.00 % 02/06/17 06:02 Glucose 104 mg/dL (75-100) H 02/06/17 06:02 Lactic Acid 0.70 mmol/L (0.7-2.0) 02/04/17 01:15 Calcium 9.0 mg/dL (8.4-10.2) 02/06/17 06:02 Magnesium 2.20 mg/dL (1.7-2.3) 02/06/17 06:02 Total Bilirubin 0.20 mg/dL (0.1-1.2) 02/03/17 19:41 AST 13 units/L (5-40) 02/03/17 19:41 ALT 10 units/L (7-56) 02/03/17 19:41 Alkaline Phosphatase 95 units/L (35-129) 02/03/17 19:41 Troponin T 0.024 ng/mL (0.00-0.029) 02/03/17 22:02 Total Protein 6.7 g/dL (6.3-8.2) 02/03/17 19:41 Albumin 3.1 g/dL (3.9-5) L 02/03/17 19:41 Albumin/Globulin Ratio 0.9 % 02/03/17 19:41 Urine Color Yellow (Yellow) 02/04/17 00:15 Urine Turbidity Clear (Clear) 02/04/17 00:15 Urine pH 5.0 (5.0-7.0) 02/04/17 00:15 Ur Specific [place] 1.023 (1.003-1.030) 02/04/17 00:15 Urine Protein 100 mg/dl mg/dL (Negative) 02/04/17 00:15 Urine Glucose (UA) Neg mg/dL (Negative) 02/04/17 00:15 Urine Ketones Neg mg/dL (Negative) 02/04/17 00:15 Urine Blood Neg (Negative) 02/04/17 00:15 Urine Nitrite Neg (Negative) 02/04/17 00:15 Urine Bilirubin Neg (Negative) 02/04/17 00:15 Urine Urobilinogen 2.0 mg/dL (<2.0) 02/04/17 00:15 Ur Leukocyte Esterase Neg (Negative) 02/04/17 00:15 Urine WBC (Auto) 1.0 /HPF (0.0-6.0) 02/04/17 00:15 Urine RBC (Auto) 1.0 /HPF (0.0-6.0) 02/04/17 00:15 U Epithel Cells (Auto) 1.0 /HPF (0-13.0) 02/04/17 00:15 Urine Mucus Few /HPF 02/04/17 00:15
[2017-02-08] MEDS: PERCOCET 5/325 PO PRN ×2 (02:36→15:37)
--- NOTE | 2017-02-08 08:23 | Progress Note ---
Hospitalist Physical - Constitutional Vitals: Temp Pulse Resp BP Pulse Ox 98.2 F 89 14 168/104 100 02/07/17 23:00 02/07/17 23:00 02/07/17 23:00 02/07/17 23:00 02/07/17 23:00 General appearance: Present: no acute distress, cachectic, disheveled, other ( emaciated) Results - Labs CBC & Chem 7: 02/05/17 05:11 02/06/17 06:02 Labs: Laboratory Last Values WBC 5.8 K/mm3 (4.5-11.0) 02/05/17 05:11 RBC 3.39 M/mm3 (3.65-5.03) L 02/05/17 05:11 Hgb 10.4 gm/dl (11.8-15.2) L 02/05/17 05:11 Hct 33.5 % (35.5-45.6) L 02/05/17 05:11 MCV 99 fl (84-94) H 02/05/17 05:11 MCH 31 pg (28-32) 02/05/17 05:11 MCHC 31 % (32-34) L 02/05/17 05:11 RDW 15.1 % (13.2-15.2) 02/05/17 05:11 Plt Count 296 K/mm3 (140-440) 02/05/17 05:11 Lymph % (Auto) Premix Operator Concentrate 02/03/17 19:41 [place] % (Auto) Premix Operator Concentrate 02/05/17 05:11 Eos % (Auto) Premix Operator Concentrate 02/03/17 19:41 Baso % (Auto) Premix Operator Concentrate 02/03/17 19:41 Lymph # Premix Operator Concentrate 02/03/17 19:41 Winn # Premix Operator Concentrate 02/03/17 19:41 Eos # Premix Operator Concentrate 02/03/17 19:41 Baso # Premix Operator Concentrate 02/03/17 19:41 Add Manual Diff Complete 02/05/17 05:11 Total Counted 100 02/05/17 05:11 Seg Neutrophils % Premix Operator Concentrate 02/03/17 19:41 Seg Neuts % (Manual) 26.0 % (40.0-70.0) L 02/05/17 05:11 Band Neutrophils % 37.0 % 02/05/17 05:11 Lymphocytes % (Manual) 20.0 % (13.4-35.0) 02/05/17 05:11 Reactive Lymphs % (Man) 0 % 02/05/17 05:11 Monocytes % (Manual) 13.0 % (0.0-7.3) H 02/05/17 05:11 Eosinophils % (Manual) 0 % (0.0-4.3) 02/05/17 05:11 Basophils % (Manual) 0 % (0.0-1.8) 02/03/17 19:41 Metamyelocytes % 4.0 % 02/05/17 05:11 Myelocytes % 0 % 02/05/17 05:11 Promyelocytes % 0 % 02/05/17 05:11 Blast Cells % 0 % 02/05/17 05:11 Nucleated RBC % 3.0 % (0.0-0.9) H 02/05/17 05:11 Seg Neutrophils # Premix Operator Concentrate 02/03/17 19:41 Seg Neutrophils # Man 1.5 K/mm3 (1.8-7.7) L 02/05/17 05:11 Band Neutrophils # 2.1 K/mm3 02/05/17 05:11 Lymphocytes # (Manual) 1.2 K/mm3 (1.2-5.4) 02/05/17 05:11 Abs React Lymphs (Man) 0.0 K/mm3 02/05/17 05:11 Monocytes # (Manual) 0.8 K/mm3 (0.0-0.8) 02/05/17 05:11 Eosinophils # (Manual) 0.0 K/mm3 (0.0-0.4) 02/05/17 05:11 Basophils # (Manual) 0.0 K/mm3 (0.0-0.1) 02/05/17 05:11 Metamyelocytes # 0.2 K/mm3 02/05/17 05:11 Myelocytes # 0.0 K/mm3 02/05/17 05:11 Promyelocytes # 0.0 K/mm3 02/05/17 05:11 Blast Cells # 0.0 K/mm3 02/05/17 05:11 WBC Morphology Not Reportable 02/05/17 05:11 Hypersegmented Neuts Not Reportable 02/05/17 05:11 Hyposegmented Neuts Not Reportable 02/05/17 05:11 Hypogranular Neuts Not Reportable 02/05/17 05:11 Smudge Cells Not Reportable 02/05/17 05:11 Toxic Granulation Not Reportable 02/05/17 05:11 Toxic Vacuolation Not Reportable 02/05/17 05:11 Dohle Bodies Not Reportable 02/05/17 05:11 Pelger-Huet Anomaly Not Reportable 02/05/17 05:11 David Rods Not Reportable 02/05/17 05:11 Platelet Estimate Appears normal 02/05/17 05:11 Clumped Platelets Not Reportable 02/05/17 05:11 Plt Clumps, EDTA Not Reportable 02/05/17 05:11 Large Platelets Not Reportable 02/05/17 05:11 Giant Platelets Not Reportable 02/05/17 05:11 Platelet Satelliting Not Reportable 02/05/17 05:11 Plt Morphology Comment Not Reportable 02/05/17 05:11 RBC Morphology Not Reportable 02/05/17 05:11 Dimorphic RBCs Not Reportable 02/05/17 05:11 Polychromasia Few 02/05/17 05:11 Hypochromasia 1+ 02/05/17 05:11 Poikilocytosis Not Reportable 02/05/17 05:11 Anisocytosis 1+ 02/05/17 05:11 Microcytosis Not Reportable 02/05/17 05:11 Macrocytosis 1+ 02/05/17 05:11 Spherocytes Not Reportable 02/05/17 05:11 Pappenheimer Bodies Not Reportable 02/05/17 05:11 Sickle Cells Not Reportable 02/05/17 05:11 Target Cells Not Reportable 02/05/17 05:11 Tear Drop Cells Not Reportable 02/05/17 05:11 Ovalocytes Few 02/05/17 05:11 Helmet Cells Not Reportable 02/05/17 05:11 [place] Bodies Not Reportable 02/05/17 05:11 [place] Rings Not Reportable 02/05/17 05:11 [place] Cells Not Reportable 02/05/17 05:11 Bite Cells Not Reportable 02/05/17 05:11 Crenated Cell Not Reportable 02/05/17 05:11 Elliptocytes Not Reportable 02/05/17 05:11 Acanthocytes (Spur) Not Reportable 02/05/17 05:11 Rouleaux Not Reportable 02/05/17 05:11 Hemoglobin C Crystals Not Reportable 02/05/17 05:11 Schistocytes Not Reportable 02/05/17 05:11 Malaria parasites Not Reportable 02/05/17 05:11 Jamal Bodies Not Reportable 02/05/17 05:11 Hem Pathologist Commnt No 02/05/17 05:11 POC ABG pH 7.343 (7.35-7.45) L 02/03/17 21:33 POC ABG pCO2 86.4 (35-45) H 02/03/17 21:33 POC ABG pO2 125 (80-105) H 02/03/17 21:33 POC ABG HCO3 47.0 02/03/17 21:33 POC ABG Total CO2 50 02/03/17 21:33 POC ABG O2 Sat 98 02/03/17 21:33 POC ABG Base Excess 21 02/03/17 21:33 FiO2 40 % 02/03/17 21:33 Sodium 141 mmol/L (137-145) 02/06/17 06:02 Potassium 4.7 mmol/L (3.6-5.0) 02/06/17 06:02 Chloride 92.7 mmol/L (98-107) L 02/06/17 06:02 Carbon Dioxide 44 mmol/L (22-30) H* 02/06/17 06:02 Anion Gap 9 mmol/L 02/06/17 06:02 BUN 15 mg/dL (9-20) 02/06/17 06:02 Creatinine 0.5 mg/dL (0.8-1.5) L 02/06/17 06:02 Estimated GFR > 60 ml/min 02/06/17 06:02 BUN/Creatinine Ratio 30.00 % 02/06/17 06:02 Glucose 104 mg/dL (75-100) H 02/06/17 06:02 Lactic Acid 0.70 mmol/L (0.7-2.0) 02/04/17 01:15 Calcium 9.0 mg/dL (8.4-10.2) 02/06/17 06:02 Magnesium 2.20 mg/dL (1.7-2.3) 02/06/17 06:02 Total Bilirubin 0.20 mg/dL (0.1-1.2) 02/03/17 19:41 AST 13 units/L (5-40) 02/03/17 19:41 ALT 10 units/L (7-56) 02/03/17 19:41 Alkaline Phosphatase 95 units/L (35-129) 02/03/17 19:41 Troponin T 0.024 ng/mL (0.00-0.029) 02/03/17 22:02 Total Protein 6.7 g/dL (6.3-8.2) 02/03/17 19:41 Albumin 3.1 g/dL (3.9-5) L 02/03/17 19:41 Albumin/Globulin Ratio 0.9 % 02/03/17 19:41 Urine Color Yellow (Yellow) 02/04/17 00:15 Urine Turbidity Clear (Clear) 02/04/17 00:15 Urine pH 5.0 (5.0-7.0) 02/04/17 00:15 Ur Specific [place] 1.023 (1.003-1.030) 02/04/17 00:15 Urine Protein 100 mg/dl mg/dL (Negative) 02/04/17 00:15 Urine Glucose (UA) Neg mg/dL (Negative) 02/04/17 00:15 Urine Ketones Neg mg/dL (Negative) 02/04/17 00:15 Urine Blood Neg (Negative) 02/04/17 00:15 Urine Nitrite Neg (Negative) 02/04/17 00:15 Urine Bilirubin Neg (Negative) 02/04/17 00:15 Urine Urobilinogen 2.0 mg/dL (<2.0) 02/04/17 00:15 Ur Leukocyte Esterase Neg (Negative) 02/04/17 00:15 Urine WBC (Auto) 1.0 /HPF (0.0-6.0) 02/04/17 00:15 Urine RBC (Auto) 1.0 /HPF (0.0-6.0) 02/04/17 00:15 U Epithel Cells (Auto) 1.0 /HPF (0-13.0) 02/04/17 00:15 Urine Mucus Few /HPF 02/04/17 00:15
[2017-02-08] MEDS: DUONEB *Not for PRN Use IH SCH ×2 (08:36→14:00)
[2017-02-08] MEDS: PULMICORT IH SCH (08:36)
[2017-02-08] MEDS: ROCEPHIN/NS 1 GM/50 ML 1 GM/50 ML BAG IV SCH (09:11)
[2017-02-08] MEDS: ZESTRIL PO SCH (09:12)
[2017-02-08] MEDS: COREG PO SCH (09:12)
[2017-02-08] MEDS: MEGACE PO SCH (09:12)
[2017-02-08] MEDS: OxyCONTIN PO SCH (09:12)
[2017-02-08] MEDS: LOVENOX SUB-Q SCH (09:13)
[2017-02-08] MEDS: PREZISTA PO SCH (09:14)
[2017-02-08] MEDS ORDERED: ZITHROMAX PO SCH (10:00)
--- NOTE | 2017-02-08 14:12 | Discharge Summary ---
Providers - Providers Date of Admission: 02/03/17 22:47 Date of discharge: 02/08/17 Attending physician: CLAUDIA NICHOLSON 02/06/17 15:52 Physical Therapy Evaluation and Treat [CONS] Routine Comment: Reason For Exam: chronic illness/general debility Primary care physician: PLUG SAW OPERATOR Hospitalization Condition: Fair Disposition: DC-50 TO HOSPICE (HOME) Exam - Constitutional Vitals: Temp Pulse Resp BP Pulse Ox 99.3 F 88 20 159/99 100 02/08/17 11:50 02/08/17 14:00 02/08/17 14:00 02/08/17 11:50 02/08/17 08:00 Plan Activity: advance as tolerated, fall precautions Diet: advance as tolerated, other (cardiac diet) Special Instructions: physical therapy Durable Medical Equipment Needed Upon Discharge: Oxygen (as needed) Additional Instructions: home hospice. f/u ID at [facility] 3-4 days Follow up with: PRIMARY CARE, [Primary Care Provider] - 3-5 Days Prescriptions: Levofloxacin [Levaquin TAB] 500 mg PO DAILY #5 tablet oxyCODONE /ACETAMINOPHEN [Percocet 5/325 mg] 1 tab PO Q6H PRN #20 tablet PRN Reason: Pain, Moderate (4-6)
--- NOTE | 2017-02-08 14:37 | Query-Infection ---
Angelica Calderon____Marcin Date:__02/08/2017 Fisher Mussel/CDS:___Deedee Phone#:__[phone] Exercise your independent professional judgment when responding to this query. Questions asked do not imply a particular answer is desired or expected. We greatly appreciate your clarification on this issue. Clinical Documentation States: 51 year old female was admitted on 02/03/17. The IM H&P note on 02/03/17 states "51-year-old man with a history of HIV, unknown CD4 count, COPD, CHF, hep C comes emergency room with complaint of shortness of breath 5 days. He also complaining of cough productive of green yellow phlegm, decreased appetite and lethargy." Pulse rate: 108 Respiratory rate: 26 Clinical findings show: (please check applicable parameters) Infection, known /suspected, with some of the following indicators; Specify the infection: 3 General parameters [ ] Fever (core temp >38.30C or 100.40F) [ ] Hypothermia (core temp <36C) [X] Heart rate >90 bpm [X] Tachypnea: >20 bpm or pCO2 < 32 mmHg [ ] Altered mental status [ ] Significant edema / +ve fluid balance (>20 ml/kg 24 h) [ ] Hyperglycemia (Bl. glucose >110 mg/dl) w/o diabetes Inflammatory parameters [ ] Leukocytosis (white blood cell count >12,000/l) [ ] Leukopenia (white blood cell count <4,000/l) [ ] Bandemia (immature WBC > 10%) [ ] Leucocyte Left Shift [ ] Plasma procalcitonin>2 SD above the normal value Hemodynamic and tissue perfusion parameters [ ] Arterial hypotension(SBP <90 mmHg, MAP <70 mmHg,or a SBP drop >40 mmHg in adults) [ ] Hyperlactatemia (>3 mmol/l) [ ] Anion Gap (> 11mEG/l) [ ] Decreased capillary refill or mottling Organ dysfunction parameters [ ] Arterial hypoxemia (PaO2/FIO2 <300) [ ] Creatinine increase =0.5 mg/dl [ ] Acute oliguria (urine output <0.5 ml | kg |h or 45 mM/l for at least 2 hrs) [ ] Coagulation abnormalities (INR >1.5 or activated partial thromboplastin time >60 s) [ ] Ileus (absent lyric wel sounds) [ ] Thrombocytopenia (platelet count <100,000/l) [ ] Hyperbilirubinemia (plasma total bilirubin >4 mg/dl) According to the clinical indications above, can Bacteremia be further specified? If so, please indicate below and in your Progress Notes and/ or Discharge Summary. Indicate if the condition was present on admission. PHYSICIAN RESPONSE: [ x] Sepsis [ ] Severe Sepsis [ ] Septic Shock [ ] Septicemia [ ] Sepsis now resolved [ ] SIRS due to non-infectious cause with organ dysfunction [ ] SIRS due to non-infectious cause without organ dysfunction [x ] Other:_Secondary to underlying pneumonia /HIV-AIDS [ ] Comment/Explanation: Present on Admission: [ x] Yes (Y) [ ] Clinically undeterminable (W) [ ] No (N) [ ] Ruled Out Please also document response in your Progress Notes and/or Discharge Summary and indicate if the condition was present on admission Notes: SIRS/ SIRS WITH ORGAN DYSFUNCTION Systemic inflammatory response syndrome (SIRS) generally refers to the systemic response to trauma/ruby or other insult such as Acute Myocardial Infarction, Acute Pancreatitis, and Major Surgery with symptoms including fever, tachycardia , tachypnea, and leukocytosis (1). BACTEREMIA Presence of viable bacteria in the circulating blood (2). This term is reserved for patients that do not manifest above SIRS response. SEPTICEMIA Generally refers to a systemic disease associated with the presence of pathological microorganisms or toxins in the blood, which can include bacteria, viruses, fungi or other organisms (1). SEPSIS Generally refers to SIRS due infection (1). SEVERE SEPSIS Generally refers to sepsis associated with acute organ dysfunction (1). SEPTIC SHOCK Generally refers to circulatory failure associated with severe sepsis (2), and defined as hypotension or hypoperfusion despite adequate fluid resuscitation (1 hour) (3). REFERENCES: 1. [place] [employer]/Society of Critical Care Medicine Consensus Conference. Definitions for sepsis and organ failure and guidelines for the use of innovative therapies in sepsis. Critical Care Med 1992;20:864 - 74. 2. Lev y MM, Saman MP, Jorge JENKINS, Arjun E, Juan Manuel D, Sunil D, Brownlee J, Fordyce SM , Martin JL, [place] G; International Sepsis Definitions Conference. 2001 SCCM/ESICM/ACCP/ATS/SIS International Sepsis Definitions Conference. Intensive Care Med. 2002;29(4):530-8. Epub 2002Oct 26. Review. PubMed PMID:[id number] 3. ICD-9-CM Official Guidelines for Coding and Reporting 4. Medscape Drugs, Diseases and Procedures references 5. [employer] Textbook of Internal Medicine. 18th Edition MTDD
--- NOTE | 2017-02-08 14:47 | Query- Pneumonia Documented ---
Deaiain Calderon__Harsh Date:__02/08/17 Application Infrastructure Engineer/GENIE:___Deedee Phone#:___[phone] Exercise your independent professional judgment when responding to query. Questions asked do not imply a particular answer is desired or expected. We greatly appreciate your clarification on this issue. Clinical Documentation States: 51 year male was admitted on 02/03/17. The IM H&P note on 02/03/17 states "51-year-old man with a history of HIV, unknown CD4 count, COPD, CHF, hep C comes emergency room with complaint of shortness of breath 5 days. He also complaining of cough productive of green yellow phlegm, decreased appetite and lethargy." The hospitalist progress note on 02/05/17 states "--Community-acquired pneumonia Continue current antibiotics, follow cultures, supportive care of HIV." Clinical Findings Show: Antibiotics: Rocephin Chest Imaging CXR Impression states on 02/03/17: "Bilateral lower lobe opacities probably pneumonitis." Please further specify known or suspected Etiology: [ ] Aspiration Pneumonia [ ] Gram Negative Pneumonia [ x] Gram Positive Pneumonia [ ] Pseudomonas Pneumonia [ ] MRSA - related Pneumonia [ ] Viral Pneumonia [ ] Candidal Pneumonia [ ] Other: [ ] Unable to determine Present on Admission: [x ] Yes (Y) [ ] Clinically undeterminable (W) [ ] No (N) Please also document response in your Progress Notes and/or Discharge Summary and indicate if the condition was present on admission. EMELIA
[2017-02-08] MEDS ORDERED: APRESOLINE IV ONE (16:00)
[2017-02-08 17:39] VITALS: BP 154/96
== END 2017-02-08 18:25 | disposition hospice, home (50) | DRG 974 ==
LOC: ED 18:55 → 3A 22:47
PROVIDERS: ADMIT Internal Medicine; ATTEND Internal Medicine
PROC: 4A033R1 Measurement of Arterial Saturation, Peripheral, Percutaneous Approach (ICD-10-PCS; principal; 2017-02-03)
PROC: 5A09357 Assistance with Respiratory Ventilation, Less than 24 Consecutive Hours, Continuous Positive Airway Pressure (ICD-10-PCS; 2017-02-03)
DX: B20 Human immunodeficiency virus [HIV] disease (principal); A41.9 Sepsis, unspecified organism; J96.00 Acute respiratory failure, unspecified whether with hypoxia or hypercapnia; J15.9 Unspecified bacterial pneumonia; I50.9 Heart failure, unspecified; B19.20 Unspecified viral hepatitis C without hepatic coma; J44.9 Chronic obstructive pulmonary disease, unspecified; Z82.49 Family history of ischemic heart disease and other diseases of the circulatory system; Z79.899 Other long term (current) drug therapy
CPT/HCPCS: 36415; 71020; 80048; 80053; 81001; 82140; 82803; 83735; 84484; 85007; 85025; 87040; 93005; 93010; 94640; 94644; 94760; 96365; 96372; 99291; G8978-GP; G8979-GP; J0360; J0456; J0610; J0696; J1100; J1650; J2250; J7030; J7040; J7050; J7060